=== PATIENT | male | born 1945 | race Caucasian/White ===

== ENCOUNTER 2023-03-30 18:17 | Outpatient (RCR) | payer MEDICARE, SELFPAY | END 2023-03-30 23:59 | disposition home or self-care (01) | LOC: RPT 18:17 | PROVIDERS: ATTENDING PHYSICIAN Specialist; FAMILY PHYSICIAN Physician Assistant | DX: R35.0 Frequency of micturition (principal); M62.89 Other specified disorders of muscle | CPT/HCPCS: 97140; 97530 ==

== ENCOUNTER → 2023-09-05 09:38 | Outpatient (REF) | payer MEDICARE, SELFPAY ==
[2023-09-05 11:25] LABS: PSA, Total - Diagnostic 0.53 ng/ml (0.0-4.0)
== END ==
LOC: REG 09:38
PROVIDERS: ATTENDING PHYSICIAN Specialist
DX: C61 Malignant neoplasm of prostate (principal)
CPT/HCPCS: 36415; 84153

== ENCOUNTER 2023-10-08 04:33 | Emergency (ER) | payer MEDICARE, SELFPAY ==
[2023-10-08 04:39] VITALS: BP 155/86
--- NOTE | 2023-10-08 04:46 | ED.GENMED ---
History of Present Illness
General
Chief Complaint: Abdominal Pain
Time Seen by Provider: 10/08/23 04:41
Travel History
Have you had any contact with someone who has COVID-19?: No
Do you have any symptoms of coronavirus? Fever > 100 degrees, chills, cough, shortness of breath, sore throat, loss of taste or smell, muscle aches, or headache?: No
History of Present Illness
History of Present Illness:
HPI: The patient noted an abnormality in the right groin associated with the pain so he came in here for further evaluation. He has not been vomiting but feels slightly nauseated. He admits to alcohol use on a daily basis.
EXAM:
GENERAL: Well appearing in no distress
HEENT: Moist oral mucosa
CARDIOVASCULAR: No murmurs, normal heart rate, regular rhythm, No chest wall tenderness
PULMONARY: No respiratory distress, breath sounds are clear and equal
ABDOMEN: Soft with no peritoneal signs, no tenderness, there is no palpable inguinal hernia, just above the right inguinal region, there is a 1 x 2 cm ovoid area of erythema with a small nodular density just underneath but not clearly consistent
with an abscess, the tissue appears somewhat indurated
NEUROLOGIC: Excellent strength all extremities, no coordination deficits
PSYCHIATRIC: Appropriate mental status, normal insight and judgement
EXTREMITIES: Nontender, no edema, moves all extremities equally
SKIN: As above
TIME OF INITIAL ENCOUNTER: 4:50 AM
NUMBER AND COMPLEXITY OF PROBLEMS ADDRESSED AT THE ENCOUNTER
� Chronic conditions affecting care: CHF, CAD, high blood pressure, hyperlipidemia, diverticular disease, GERD, stomach ulcers, prostate cancer, daily drinker
� Acute Exacerbation and/or Progression of Chronic Illness: This is an acute problem
� Differential Diagnosis includes: Lymphadenitis, cellulitis, inguinal hernia not present on physical examination
AMOUNT AND/OR COMPLEXITY OF DATA TO BE REVIEWED AND ANALYZED
� I performed an independent evaluation of and my interpretation is:
EKG:
CT:
X-rays:
Laboratory Studies:
Other:
� Review of other/old records: The patient was admitted here in 2022 with an exacerbation of heart failure
� Clinical information was obtained by an independent historian: None needed
� Prescriptions/Medications Considered but not given:
� Further testing considered but not performed: Considered CT imaging and labs however the abnormality on exam is very superficial and could be related to a very superficial infection or infected lymph node/cellulitis
RISK OF COMPLICATIONS AND/OR MORBIDITY OR MORTALITY OF PATIENT MANAGEMENT
� Social determinants of health affecting care: Lives at home, states he drinks alcohol daily
� Discussion with other providers:
� Escalation of care including admission/observation vs risk of discharge considered: Will try antibiotics. No evidence for bowel obstruction based on physical examination. He has a soft nontender abdomen but is only focally
tender over the area of erythema in the right inguinal region.
Past History
Past History
ED Past Medical History: CAD, Cancer (Prostate), GERD, HTN, Hypercholesterolemia, [place], Psychiatric and Other (angioedema)
ED Past Surgical History: Cardiac
Patient has exhibited threatening behavior?: No
Social History
Tobacco: Former smoker
Alcohol: Daily (2 glasses of wine per day)
Drug: None
Living: alone
Employment: Employed
Family History
Family History: CAD
Phy Exam
Physical Exam
Physical Exam:
See HPI
Course
Orders/Labs/Results
Orders:
Orders
10/08/23 04:52
Cephalexin Monohydrate [Keflex] 500 mg PO NOW STA
Vital Signs
Initial and Last Documented VS:
Initial Vital Signs
Temp Pulse Resp Pulse Ox
98.2 F 70 16 95
10/08/23 04:35 10/08/23 04:35 10/08/23 04:35 10/08/23 04:35
Last Documented Vital Signs
Temp Pulse Resp BP Pulse Ox
98.2 F 58 16 119/60 94
10/08/23 04:35 10/08/23 05:11 10/08/23 05:11 10/08/23 05:11 10/08/23 05:11
*Critical Care Note
Total Time (30-74mins, 75-104mins- exclusive of procedures): Not Applicable
ED Attending Note
-
Portions of this chart may have been created with voice recognition software.� Occasional wrong word or��sound alike� substitutions may have occurred due to the inherent limitations of voice recognition software.
Discharge Plan
Departure
Patient Disposition: Home (Routine Discharge)
Date of Disposition: 10/08/23
Time of Disposition: 05:19
Patient with high blood pressure during this ER visit?: Yes
Discharge Problem:
Lymphadenitis
Instructions: Lymphadenitis (DC), BLOOD PRESSURE
Prescriptions:
New
cephalexin 500 mg capsule
500 mg PO TID Qty: 21 0RF
No Action
terazosin 5 MG capsule
5 mg PO HS
aspirin 81 MG tablet,delayed release (DR/EC)
81 mg PO DAILY
rosuvastatin [Crestor] 40 MG tablet
40 mg PO HS
bupropion HCl 300 MG tablet extended release 24 hr
300 mg PO DAILY
ropinirole 1 MG tablet
3 mg PO HS
pantoprazole 40 MG tablet,delayed release (DR/EC)
40 mg PO DAILY
alprazolam 0.25 MG tablet
0.25 mg PO Q8HPRN PRN (Reason: anxiety)
Patient Comments:
04/14/2023, patient filled this medication on 11/27/2022 for 30 tablets according to PDMP.
carvedilol 6.25 mg Tablet
6.25 mg PO BID
guaifenesin [Tussin] 100 mg/5 mL Liquid
200 mg PO BID PRN (Reason: cough)
azelastine 137 mcg (0.1 %) Aerosol,[place]
1 spray INTRANASAL BID
Patient Comments:
04/14/2023, patient states that sometimes they take this medication more than two times a day.
psyllium husk 3.4 gram/5.4 gram Powder
2 tsp PO TIDPRN PRN (Reason: constipation)
furosemide [Lasix] 20 MG tablet
40 mg PO DAILY
tramadol 50 mg Tablet
50 mg PO Q6HPRN PRN (Reason: mod sev pain) Qty: 15 0RF
spironolactone 25 mg Tablet
25 mg PO DAILY Qty: 30 2RF
Jardiance 10 mg Tablet
10 mg PO DAILY Qty: 30 2RF
Referrals:
Karly Simmons MD [Family Provider] -
Activity Restrictions/Additional Instructions:
I suspect that what you are feeling is an infection of the lymph node or just a small area of infection of tissue underneath the skin. We can try an antibiotic for the next week. Return here if worse.
Interventions
Interventions:
*Risk Screen - Suicide Last Done: 10/08/23 04:35
*General Assessment Last Done: 10/08/23 04:35
*Neglect/Abuse Screening Last Done: 10/08/23 04:35
*ED COVID-19 Vaccine History Last Done: 10/08/23 04:46
NE-Mldrfd-Rcpxykyoly Assessment Last Done: 10/08/23 05:11
Discharge Date and Time
Print Language: SALVADOREAN
[2023-10-08] MEDS: KEFLEX 500 MG PO (05:07)
[2023-10-08 05:11] VITALS: BP 119/60
== END 2023-10-08 05:35 | disposition home or self-care (01) ==
LOC: EMR 04:33
PROVIDERS: EMERGENCY PHYSICIAN Emergency Medicine; FAMILY PHYSICIAN Family Medicine
DX: I88.9 Nonspecific lymphadenitis, unspecified (principal); I25.10 Atherosclerotic heart disease of native coronary artery without angina pectoris; K21.9 Gastro-esophageal reflux disease without esophagitis; I11.0 Hypertensive heart disease with heart failure; Z87.891 Personal history of nicotine dependence; Z82.49 Family history of ischemic heart disease and other diseases of the circulatory system; E78.00 Pure hypercholesterolemia, unspecified
CPT/HCPCS: 99282

== ENCOUNTER 2023-10-13 20:05 | Emergency (ER) | payer MEDICARE, SELFPAY ==
[2023-10-13 20:14] VITALS: BP 147/77
[2023-10-13 20:44] LABS: Urine Albumin Negative (Neg - Trace); Urine Bilirubin Negative (Negative); Urine Character Clear (Clear); Urine Color Yellow; Urine Glucose 3+ (Negative); Urine Ketone 1+ (Negative); Urine Leukocyte Negative (Negative); Urine Nitrite Negative (Negative); Urine Occult Blood Negative (Negative); Urine Specific Gravity 1.015 (<1.030); Urine Urobilinogen Negative (Neg - 1+)
[2023-10-13 20:44] LABS: % Basophils 0.4 % (0-2); % Eosinophils 0.6 % (0-6); % Immature Granulocytes 0.2 % (0-0.5); % Monocytes 18.1 % (1.7-9.3); % Neutrophils 40.7 % (42.2-75.2); Absolute Eosinophils 0.1 10^3/uL (0-0.7); Absolute Lymphocytes 3.2 10^3/uL (1.2-3.4); Absolute Monocytes 1.5 10^3/uL (0.1-0.6); Absolute Neutrophils 3.3 10^3/uL (1.4-6.5); Hematocrit 46.1 % (39.0-52.0); Hemoglobin 15.6 g/dL (13.0-18.0); Mean Corp Hgb Conc. 33.8 g/dL (33.0-37.0); Mean Corpuscular Volume 94.5 fL (80.0-94.0); Mean Platelet Volume 10.2 fL (7.4-10.4); Nucleated Red Blood Cells % 0 % (-); Platelet Count 147 10^3/uL (130-400); Red Blood Cell Count 4.88 10^6/uL (4.70-6.10); Red Cell Dist. Width 13.8 % (11.5-14.5); White Blood Cell Count 8.1 10^3/uL (4.8-10.8)
[2023-10-13 20:55] LABS: ALT (SGPT) 37 U/L (0-50); AST (SGOT) 35 U/L (17-59); Albumin 5.2 g/dl (3.5-5.0); Alkaline Phosphatase 49 U/L (38-126); Blood Urea Nitrogen 19 mg/dl (9-20); Calcium 9.8 mg/dl (8.4-10.2); Carbon Dioxide 23 mmol/L (22-30); Glucose 112 mg/dl (70-99); Lipase 125 U/L (23-300); Total Bilirubin 1.3 mg/dl (0.2-1.3); eGFR > 60.00
[2023-10-13 21:00] VITALS: BMI 31.5
[2023-10-13 21:09] LABS: Chloride 101 mmol/L (98-107); Potassium 4.5 mmol/L (3.5-5.1); Sodium 137 mmol/L (135-145)
--- NOTE | 2023-10-13 22:24 | ED.GENMED ---
History of Present Illness
General
Chief Complaint: Abdominal Pain
Source: patient
Exam Limitations: none
Time Seen by Provider: 10/13/23 21:22
Nursing documentation reviewed up to this point in time: agreed with
History of Present Illness
History of Present Illness:
Patient presents to ED secondary to persistent right lower abdominal pain over the past 1 week. Patient was evaluated in ED 5 days ago and was started on antibiotics, without improvement symptoms. At that time, patient was advised to return to ED
with persistent or worsening pain for potential imaging studies. Denies fever or chills. Abdominal pain described as crampy, nonradiating, without any alleviating or exacerbating factors. Denies vomiting or diarrhea. Denies loss of appetite.
Denies recent injuries. Denies difficulty with urination.
Past History
Past History
ED Past Medical History: CAD, Cancer (Prostate), GERD, HTN, Hypercholesterolemia, [place], Psychiatric and Other (angioedema)
ED Past Surgical History: Cardiac
Patient has exhibited threatening behavior?: No
Social History
Tobacco: Former smoker
Alcohol: Daily (2 glasses of wine per day)
Drug: None
Living: alone
Employment: Employed
Family History
Family History: CAD
Review of Systems
Review of Systems
Allergies reviewed?: Yes
All Other Systems: ROS reviewed and negative except as documented in HPI and ROS
Constitutional: Reports no symptoms
ABD/GI: Reports abdominal pain; Denies nausea, vomiting or diarrhea
Musculoskeletal: Reports no symptoms
Skin: Reports no symptoms
Neurological: Reports no symptoms
Phy Exam
Physical Exam
Physical Exam:
Physical Exam
General: no apparent distress, not acutely ill. afebrile
Head: nc/at. eomi
Neck: supple. no meningeal signs.
Abdomen: normal bowel sounds. mild RLQ tenderness to palpation
Neuro: alert and oriented. no focal neurological deficits
Skin: no rash
Psychiatric: well kept. interactive and cooperative
Extremities: no edema. no calf tenderness
Course
Orders/Labs/Results
Orders:
Orders
10/13/23 20:21
Complete Blood Count/With Diff Urgent
Comprehensive Metabolic Panel Urgent
Lipase Urgent
10/13/23 20:39
Urinalysis Reflex To Culture Urgent
Date Specimen was Collected: 10/13/23
Time Specimen was Collected: 20:16
10/13/23 21:34
CT Abd/pel Without Iv Or Oral Urgent
Comment:
Reason For Exam: RLQ pain
Abnormal Lab Results
10/13/23 10/13/23
20:21 20:39
MCV 94.5 H fL
(80.0-94.0)
MCH 32.0 H pg
(27.0-31.0)
Absolute Monos (auto) 1.5 H 10^3/uL
(0.1-0.6)
Neutrophils % 40.7 L %
(42.2-75.2)
Monocytes % 18.1 H %
(1.7-9.3)
Glucose 112 H mg/dl
(70-99)
Albumin 5.2 H g/dl
(3.5-5.0)
Urine Ketones 1+ A
(Negative)
Urine Glucose 3+ A
(Negative)
10/13/23 20:21
10/13/23 20:21
Vital Signs
Initial and Last Documented VS:
Initial Vital Signs
Temp Pulse Resp BP Pulse Ox
98.7 F 75 17 147/77 94
10/13/23 20:14 10/13/23 20:14 10/13/23 20:14 10/13/23 20:14 10/13/23 20:14
Last Documented Vital Signs
Temp Pulse Resp BP Pulse Ox
98.7 F 75 17 147/77 94
10/13/23 20:14 10/13/23 20:14 10/13/23 20:14 10/13/23 20:14 10/13/23 20:14
MDM/Problems Addressed
MDM/Problems Addressed:
Patient with an unremarkable workup in ED, including blood work and CT scan. Patient with nonspecific abdominal pain, without significant distress. Patient will be advised to continue already prescribed antibiotics and follow-up with PCP as an
outpatient.
*Critical Care Note
Total Time (30-74mins, 75-104mins- exclusive of procedures): Not Applicable
ED Attending Note
-
Portions of this chart may have been created with voice recognition software.� Occasional wrong word or��sound alike� substitutions may have occurred due to the inherent limitations of voice recognition software.
Discharge Plan
Departure
Patient Disposition: Home (Routine Discharge)
Date of Disposition: 10/13/23
Time of Disposition: 23:15
Patient with high blood pressure during this ER visit?: Yes
Discharge Problem:
Abdominal pain
Instructions: Abdominal Pain
Prescriptions:
No Action
terazosin 5 MG capsule
5 mg PO HS
aspirin 81 MG tablet,delayed release (DR/EC)
81 mg PO DAILY
rosuvastatin [Crestor] 40 MG tablet
40 mg PO HS
bupropion HCl 300 MG tablet extended release 24 hr
300 mg PO DAILY
ropinirole 1 MG tablet
3 mg PO HS
pantoprazole 40 MG tablet,delayed release (DR/EC)
40 mg PO DAILY
alprazolam 0.25 MG tablet
0.25 mg PO Q8HPRN PRN (Reason: anxiety)
Patient Comments:
04/14/2023, patient filled this medication on 11/27/2022 for 30 tablets according to PDMP.
carvedilol 6.25 mg Tablet
6.25 mg PO BID
guaifenesin [Tussin] 100 mg/5 mL Liquid
200 mg PO BID PRN (Reason: cough)
azelastine 137 mcg (0.1 %) Aerosol,[place]
1 spray INTRANASAL BID
Patient Comments:
04/14/2023, patient states that sometimes they take this medication more than two times a day.
psyllium husk 3.4 gram/5.4 gram Powder
2 tsp PO TIDPRN PRN (Reason: constipation)
furosemide [Lasix] 20 MG tablet
40 mg PO DAILY
tramadol 50 mg Tablet
50 mg PO Q6HPRN PRN (Reason: mod sev pain) Qty: 15 0RF
spironolactone 25 mg Tablet
25 mg PO DAILY Qty: 30 2RF
Jardiance 10 mg Tablet
10 mg PO DAILY Qty: 30 2RF
cephalexin 500 mg capsule
500 mg PO TID Qty: 21 0RF
Referrals:
Jersey Rios MD [Active] -
Karly Simmons MD [Family Provider] -
Activity Restrictions/Additional Instructions:
As discussed, please follow-up with your primary care physician and/or referred GI physician with any further concerns. In the meantime, please continue to take already prescribed antibiotics.
Interventions
Interventions:
*Risk Screen - Suicide Last Done: 10/13/23 20:14
*General Assessment Last Done: 10/13/23 20:14
*Neglect/Abuse Screening Last Done: 10/13/23 20:14
ED- Fall Risk Assessment Last Done: 10/13/23 21:01
*ED COVID-19 Vaccine History Last Done: 10/13/23 23:31
*Nursing Disposition Last Done: 10/13/23 23:31
LM-Thfctz-Vkujqgebly Assessment Last Done: 10/13/23 21:01
Discharge Date and Time
Discharge Date/Time: 10/13/23 23:32
Print Language: BELARUSIAN
== END 2023-10-13 23:32 | disposition home or self-care (01) ==
LOC: EMR 20:05
PROVIDERS: Emergency Medicine; EMERGENCY PHYSICIAN Emergency Medicine; FAMILY PHYSICIAN Family Medicine
DX: R10.31 Right lower quadrant pain (principal); I10 Essential (primary) hypertension; I25.10 Atherosclerotic heart disease of native coronary artery without angina pectoris; E78.00 Pure hypercholesterolemia, unspecified; K21.9 Gastro-esophageal reflux disease without esophagitis; I25.2 Old myocardial infarction; Z85.46 Personal history of malignant neoplasm of prostate; Z87.891 Personal history of nicotine dependence; Z88.8 Allergy status to other drugs, medicaments and biological substances; Z91.048 Other nonmedicinal substance allergy status; Z79.82 Long term (current) use of aspirin
CPT/HCPCS: 99284; 74176; 80053; 81003; 83690; 85025

== ENCOUNTER 2023-10-22 22:25 | Emergency (ER) | payer MEDICARE, SELFPAY ==
[2023-10-22 22:27] VITALS: BP 136/74; BMI 31.7
--- NOTE | 2023-10-23 00:29 | ED.GENMED ---
History of Present Illness
General
Chief Complaint: Skin Problem
Source: patient and previous hospital records
Exam Limitations: none
Time Seen by Provider: 10/23/23 00:22
Nursing documentation reviewed up to this point in time: agreed with
History of Present Illness
History of Present Illness:
This is a 78-year-old gentleman who presents to the ED tonight with complaints of a red slightly itchy rash right inguinal/right lower quadrant that he noticed after getting out of the shower tonight. He denies pain. He does admit to mild local
itch. He denies fever nor chills.
Recent ED visits October 07 as well as October 12 with complaints of right groin painful nodule initially thought to be a focal lymphadenitis on the , started on a course of Keflex then returned October 12 with complaints of ongoing right lower quadrant
pain, unremarkable ED visit including unremarkable laboratories and unremarkable CT abdomen pelvis showing no adenopathy, no masses, no acute intra-abdominal pathology.
Since then right lower quadrant, right inguinal pain have resolved without return.
Past History
Past History
ED Past Medical History: CAD, Cancer (Prostate), GERD, HTN, Hypercholesterolemia, [place], Psychiatric and Other (angioedema)
ED Past Surgical History: Cardiac
Patient has exhibited threatening behavior?: No
Social History
Tobacco: Former smoker
Alcohol: Daily (2 glasses of wine per day)
Drug: None
Living: alone
Employment: Employed
Family History
Family History: CAD
Phy Exam
Physical Exam
Physical Exam:
GENERAL: 78-year-old gentleman appears his stated age, bright and alert, pleasant, appears in no acute distress.
NECK: Supple, nontender, no meningismus, no significant adenopathy.
ENT: oral mucosa is moist. No rhinorrhea.
CARDIAC: Regular rate and rhythm. no murmur.
LUNGS: Clear breath sounds bilaterally, no acute respiratory distress, no wheezes/rales/rhonchi
ABDOMEN: Soft, nondistended, without focal tenderness, no r/g, no cvat. normoactive BS.
NEUROLOGICAL: Alert and oriented x3, no focal neuro deficits. Gait is gutiérrez and steady.
SKIN: Warm and dry, normal color, good turgor. Right inferior lower quadrant/right superior inguinal region is a small horizontal red papular patch with few satellite lesions consistent with fungal dermatitis. This area fungal dermatitis is at the
crease of his abdominal pannus. There is no drainage, no surrounding erythema, no palpable tenderness.
MUSCULOSKELETAL: No C/C/E. peripheral pulses are full and equal b/l. No palpable tenderness.
PSYCH: Normal and appropriate interaction.
Course
Orders/Labs/Results
Orders:
Orders
10/23/23 00:28
Clotrimazole/Betamet Diprop [Lotrisone Cream] 1 applic TOPICAL NOW STA
Vital Signs
Initial and Last Documented VS:
Initial Vital Signs
Temp Pulse Resp BP
98.3 F 88 16 136/74
10/22/23 22:27 10/22/23 22:27 10/22/23 22:27 10/22/23 22:27
Last Documented Vital Signs
Temp Pulse Resp BP
98.3 F 88 16 136/74
10/22/23 22:27 10/22/23 22:27 10/22/23 22:27 10/22/23 22:27
MDM/Problems Addressed
Differential Diagnosis Includes:
Patient presents with mildly itchy rash right lower quadrant beneath his abdominal pannus which he just noticed tonight after taking a shower.
Exam remarkable for focal fungal skin infection such as tinea versus candidal dermatitis.
There is no surrounding cellulitis, nothing to signify secondary bacterial infection.
No history of diabetes nor immunocompromise.
Recommend a course of Lotrisone cream. Discussed importance of keeping area dry.
Prompt follow-up with PCP for recheck.
*Pulse Oximetry
Patient hypoxic: no
*Critical Care Note
Total Time (30-74mins, 75-104mins- exclusive of procedures): Not Applicable
ED Attending Note
-
Portions of this chart may have been created with voice recognition software.� Occasional wrong word or��sound alike� substitutions may have occurred due to the inherent limitations of voice recognition software.
Discharge Plan
Departure
Patient Disposition: Home (Routine Discharge)
Date of Disposition: 10/23/23
Time of Disposition: 00:29
Patient with high blood pressure during this ER visit?: No
Condition: Good
Discharge Problem:
Candidal dermatitis
Instructions: Fungal Skin Rash (DC)
Prescriptions:
New
clotrimazole-betamethasone 1-0.05 % cream
1 applic topical BID 28 Days Qty: 45 0RF
No Action
terazosin 5 MG capsule
5 mg PO HS
aspirin 81 MG tablet,delayed release (DR/EC)
81 mg PO DAILY
rosuvastatin [Crestor] 40 MG tablet
40 mg PO HS
bupropion HCl 300 MG tablet extended release 24 hr
300 mg PO DAILY
ropinirole 1 MG tablet
3 mg PO HS
pantoprazole 40 MG tablet,delayed release (DR/EC)
40 mg PO DAILY
alprazolam 0.25 MG tablet
0.25 mg PO Q8HPRN PRN (Reason: anxiety)
Patient Comments:
04/14/2023, patient filled this medication on 11/27/2022 for 30 tablets according to PDMP.
carvedilol 6.25 mg Tablet
6.25 mg PO BID
guaifenesin [Tussin] 100 mg/5 mL Liquid
200 mg PO BID PRN (Reason: cough)
azelastine 137 mcg (0.1 %) Aerosol,[place]
1 spray INTRANASAL BID
Patient Comments:
04/14/2023, patient states that sometimes they take this medication more than two times a day.
psyllium husk 3.4 gram/5.4 gram Powder
2 tsp PO TIDPRN PRN (Reason: constipation)
furosemide [Lasix] 20 MG tablet
40 mg PO DAILY
tramadol 50 mg Tablet
50 mg PO Q6HPRN PRN (Reason: mod sev pain) Qty: 15 0RF
spironolactone 25 mg Tablet
25 mg PO DAILY Qty: 30 2RF
Jardiance 10 mg Tablet
10 mg PO DAILY Qty: 30 2RF
cephalexin 500 mg capsule
500 mg PO TID Qty: 21 0RF
Referrals:
Karly Simmons MD [Family Provider] - Call in 1-3 days for appt
Interventions
Interventions:
*Risk Screen - Suicide Last Done: 10/22/23 22:27
*Neglect/Abuse Screening Last Done: 10/22/23 22:27
Discharge Date and Time
Print Language: EGYPTIAN
== END 2023-10-23 01:19 | disposition home or self-care (01) ==
LOC: EMR 22:25
PROVIDERS: EMERGENCY PHYSICIAN Emergency Medicine; FAMILY PHYSICIAN Family Medicine
DX: B37.2 Candidiasis of skin and nail (principal); I25.10 Atherosclerotic heart disease of native coronary artery without angina pectoris; K21.9 Gastro-esophageal reflux disease without esophagitis; I10 Essential (primary) hypertension; E78.00 Pure hypercholesterolemia, unspecified; I25.2 Old myocardial infarction; Z82.49 Family history of ischemic heart disease and other diseases of the circulatory system; Z87.891 Personal history of nicotine dependence
CPT/HCPCS: 99282

== ENCOUNTER 2023-11-03 12:17 | Emergency (ER) | payer MEDICARE, SELFPAY ==
[2023-11-03 12:20] VITALS: BP 157/88; BMI 31.0
--- NOTE | 2023-11-03 12:53 | ED.GENMED ---
History of Present Illness
General
Chief Complaint: Dizziness
Source: patient
Exam Limitations: none
Time Seen by Provider: 11/03/23 12:36
Nursing documentation reviewed up to this point in time: agreed with
History of Present Illness
History of Present Illness:
78-year-old male presents emergency room complaining of episode of dizziness. He felt the room shifting. [place] similar to his vertigo. He also felt flush. Symptoms lasted 5 to 10 seconds. This occurred at 11:30 AM.
Past History
Past History
ED Past Medical History: CAD, Cancer (Prostate), CHF, GERD, HTN, Hypercholesterolemia, [place], Psychiatric and Other (angioedema, diverticulitis)
ED Past Surgical History: Cardiac
Patient has exhibited threatening behavior?: No
Social History
Tobacco: Former smoker
Alcohol: Daily (2 glasses of wine per day)
Drug: None
Living: alone
Employment: Employed
Family History
Family History: CAD
Review of Systems
Review of Systems
Allergies reviewed?: Yes
All Other Systems: Not applicable
Constitutional: Reports no symptoms
EENT: Reports no symptoms
Respiratory: Reports no symptoms
Cardiac: Reports no symptoms; Denies chest pain or syncope
ABD/GI: Reports no symptoms
: Reports no symptoms
Musculoskeletal: Reports no symptoms
Skin: Reports no symptoms
Neurological: Reports dizzy
Endocrine: Reports no symptoms
Hematologic/Lymphatic: Reports no symptoms
Psychiatric: Reports no symptoms
Phy Exam
Physical Exam
Physical Exam:
Physical Exam
General: no apparent distress, not acutely ill
Neck: supple. no meningeal signs. normal posterior pharynx
Heart: s1/s2 regular rate and rhythm, no murmur. equal radial
pulses. Midline sternotomy scar
HEENT: Pupils equal round reactive to light, EOMI
Lungs: no acute respiratory distress. clear bilaterally
Abdomen: normal bowel sounds. not tender. no CVAT
Neuro: alert and oriented. no focal neurological deficits cranial nerves II through XII intact
Skin: no rash
Psychiatric: well kept. interactive and cooperative
Extremities: no edema. no calf tenderness. negative homans. good distal pulses
Course
Orders/Labs/Results
Orders:
Orders
11/03/23 12:25
EKG [Electrocardiogram (*1)] Stat
Reason for Study: Vertigo / Dizzy
EKG- Treatment ONCE
11/03/23 12:56
IV Insert/Care/Rem.- Treatment PRN
11/03/23 13:04
Complete Blood Count/With Diff Urgent
Comprehensive Metabolic Panel Urgent
Manual Differential Urgent
11/03/23 15:23
CT Head W/o Iv Contrast Urgent
Comment:
Reason For Exam: dizziness
Abnormal Lab Results
11/03/23
13:04
RBC 4.64 L 10^6/uL
(4.70-6.10)
MCH 32.3 H pg
(27.0-31.0)
Monocytes (Manual) 20 H %
(2-9)
Glucose 110 H mg/dl
(70-99)
11/03/23 13:04
11/03/23 13:04
Vital Signs
Initial and Last Documented VS:
Initial Vital Signs
Temp Pulse Resp BP Pulse Ox
98.7 F 53 16 157/88 96
11/03/23 12:20 11/03/23 12:20 11/03/23 12:20 11/03/23 12:20 11/03/23 12:20
Last Documented Vital Signs
Temp Pulse Resp BP Pulse Ox
98.7 F 59 20 142/85 97
11/03/23 12:20 11/03/23 15:00 11/03/23 15:00 11/03/23 15:00 11/03/23 15:00
MDM/Problems Addressed
Differential Diagnosis Includes:
CVA, dysrhythmia
MDM/Problems Addressed:
78 yo male with episode of dizziness. Do not suspect dysrhythmia or CVA. Asymptomatic. Stable for discharge.
Chronic conditions affecting care: HTN and CAD
Acute Exacerbation and/or Progression of Chronic Illness: HTN and CAD
*Radiology
Radiology exam reviewed: radiology read reviewed (CT head no acute findings)
*Pulse Oximetry
Patient hypoxic: no
*EKG
Interpreted by ED Provider?: Yes
EKG Intrepretation Date: 11/03/23
EKG Intrepretation Time: 12:59
Interpretation: abnormal
Comparison EKG: no changes
Heart Rate: 54
Rate: bradycardiac
Rhythm: sinus
[place]: normal axis
Interval: normal interval
QRS Pattern: left vent hypertrophy
Ischemia: no ischemia
*Electrophonic Engineer Interpretation
Rate: bradycardiac
Interpretation: normal
Heart Rate: 58
Rhythm: sinus
*Critical Care Note
Total Time (30-74mins, 75-104mins- exclusive of procedures): Not Applicable
Patient Management
Social determinants of health affecting care: Living situation
Escalation/DeEscalation of care consider admission/obs:
Admit not indicated
ED Attending Note
-
Portions of this chart may have been created with voice recognition software.� Occasional wrong word or��sound alike� substitutions may have occurred due to the inherent limitations of voice recognition software.
Discharge Plan
Departure
Patient Disposition: Home (Routine Discharge)
Date of Disposition: 11/03/23
Time of Disposition: 17:23
Patient with high blood pressure during this ER visit?: Yes
Condition: Good
Discharge Problem:
Dizziness
Instructions: Dizziness, BLOOD PRESSURE
Prescriptions:
No Action
terazosin 5 MG capsule
5 mg PO HS
aspirin 81 MG tablet,delayed release (DR/EC)
81 mg PO DAILY
rosuvastatin [Crestor] 40 MG tablet
40 mg PO HS
bupropion HCl 300 MG tablet extended release 24 hr
300 mg PO DAILY
ropinirole 1 MG tablet
3 mg PO HS
pantoprazole 40 MG tablet,delayed release (DR/EC)
40 mg PO DAILY
alprazolam 0.25 MG tablet
0.25 mg PO Q8HPRN PRN (Reason: anxiety)
Patient Comments:
04/14/2023, patient filled this medication on 11/27/2022 for 30 tablets according to PDMP.
carvedilol 6.25 mg Tablet
6.25 mg PO BID
guaifenesin [Tussin] 100 mg/5 mL Liquid
200 mg PO BID PRN (Reason: cough)
azelastine 137 mcg (0.1 %) Aerosol,[place]
1 spray INTRANASAL BID
Patient Comments:
04/14/2023, patient states that sometimes they take this medication more than two times a day.
psyllium husk 3.4 gram/5.4 gram Powder
2 tsp PO TIDPRN PRN (Reason: constipation)
furosemide [Lasix] 20 MG tablet
40 mg PO DAILY
tramadol 50 mg Tablet
50 mg PO Q6HPRN PRN (Reason: mod sev pain) Qty: 15 0RF
spironolactone 25 mg Tablet
25 mg PO DAILY Qty: 30 2RF
Jardiance 10 mg Tablet
10 mg PO DAILY Qty: 30 2RF
cephalexin 500 mg capsule
500 mg PO TID Qty: 21 0RF
clotrimazole-betamethasone 1-0.05 % cream
1 applic topical BID 28 Days Qty: 45 0RF
Referrals:
Karyl Simmons MD [Family Provider] -
Interventions
Interventions:
*Risk Screen - Suicide Last Done: 11/03/23 12:20
*General Assessment Last Done: 11/03/23 14:00
*Neglect/Abuse Screening Last Done: 11/03/23 12:20
ED- Neurological Assessment Last Done: 11/03/23 14:00
ED Swallowing Screen Last Done: 11/03/23 12:35
Discharge Date and Time
Print Language: PORTUGUESE
[2023-11-03 13:18] LABS: Hematocrit 42.6 % (39.0-52.0); Mean Corp Hgb Conc. 35.2 g/dL (33.0-37.0); Mean Corpuscular Hgb 32.3 pg (27.0-31.0); Mean Corpuscular Volume 91.8 fL (80.0-94.0); Mean Platelet Volume 10.1 fL (7.4-10.4); Nucleated Red Blood Cells % 0 % (-); Platelet Count 148 10^3/uL (130-400); Red Blood Cell Count 4.64 10^6/uL (4.70-6.10); Red Cell Dist. Width 13.4 % (11.5-14.5); White Blood Cell Count 6.9 10^3/uL (4.8-10.8)
[2023-11-03 13:44] LABS: ALT (SGPT) 32 U/L (0-50); AST (SGOT) 32 U/L (17-59); Albumin 4.8 g/dl (3.5-5.0); Alkaline Phosphatase 49 U/L (38-126); Blood Urea Nitrogen 19 mg/dl (9-20); Calcium 9.5 mg/dl (8.4-10.2); Carbon Dioxide 27 mmol/L (22-30); Chloride 101 mmol/L (98-107); Estimated Creatinine Clearance 79 ml/min; Glucose 110 mg/dl (70-99); Potassium 4.3 mmol/L (3.5-5.1); Sodium 137 mmol/L (135-145); Total Bilirubin 1.1 mg/dl (0.2-1.3); Total Protein 7.1 g/dl (6.3-8.2); eGFR > 60.00
[2023-11-03 14:25] LABS: Absolute Neutrophils -Man Diff 3.1 10^3/uL (1.4-6.5); Band Neutrophils 0 % (0-3); Eosinophils 1 % (0-6); Lymphocytes 34 % (20-51); Monocytes 20 % (2-9); Normal RBC Morphology Yes; Platelets Checked Yes; Segmented Neutrophils 45 % (42-75); Total Cells Counted 100
[2023-11-03 15:00] VITALS: BP 142/85
[2023-11-03 17:00] VITALS: BP 142/68
== END 2023-11-03 17:43 | disposition home or self-care (01) ==
LOC: EMR 12:17
PROVIDERS: EMERGENCY PHYSICIAN Emergency Medicine; FAMILY PHYSICIAN Family Medicine
DX: R42 Dizziness and giddiness (principal); I25.10 Atherosclerotic heart disease of native coronary artery without angina pectoris; E78.00 Pure hypercholesterolemia, unspecified; I11.0 Hypertensive heart disease with heart failure; I50.9 Heart failure, unspecified; K21.9 Gastro-esophageal reflux disease without esophagitis; Z82.49 Family history of ischemic heart disease and other diseases of the circulatory system; Z87.891 Personal history of nicotine dependence
CPT/HCPCS: 99284; 70450; 80053; 85025; 93005

== ENCOUNTER 2023-11-18 22:45 | Emergency (ER) | payer MEDICARE, SELFPAY ==
[2023-11-18 22:53] VITALS: BP 114/62
[2023-11-19 00:15] VITALS: BMI 34.0
--- NOTE | 2023-11-19 02:33 | ED.MUSCINJ ---
HPI-Injury
General
Chief Complaint: Musculo-Skeletal Complaint
Source: patient
Time Seen by Provider: 11/18/23 23:59
History of Present Illness-Injury
Initial Injury comments:
78yo right hand dominant male with a history of coronary artery disease, CHF, hypertension, and hyperlipidemia presenting for evaluation of right hand and wrist pain. Patient states that a router and a printer fell on his right hand yesterday. He
developed pain and swelling after the incident. He presents with persistent pain. He has taken tramadol without relief. No paresthesias. He has no other complaints.
Past History
Past History
ED Past Medical History: CAD, Cancer (Prostate), CHF, GERD, HTN, Hypercholesterolemia, [place], Psychiatric and Other (angioedema, diverticulitis)
ED Past Surgical History: Cardiac
Patient has exhibited threatening behavior?: No
Social History
Tobacco: Former smoker
Alcohol: Daily (2 glasses of wine per day)
Drug: None
Living: alone
Employment: Employed
Family History
Family History: CAD
Phy Exam
Physical Exam
Physical Exam:
Right hand: Mild swelling to dorsum of hand. No deformity or open wounds. +Generalized tenderness throughout hand which seems to be worse at the ulnar styloid. +Snuffbox tenderness. ROM of wrist mildly decreased 2/2 pain. 2+ radial pulse. Motor and
sensation intact in radial, ulnar, and median nerve distributions.
General Physical Exam
General Presentation: well appearing and no apparent distress
General age: appears stated age
General Skin: warm and dry
General Habitus: normal and elderly
Injury Course
Orders/Labs/Results
Orders:
Orders
11/18/23 22:59
CR Wrist - Right Min 3 Views Urgent
Comment:
Reason For Exam: injury
Hand, Right 3 View [CR Hand - Right Min 3 Views] Urgent
Comment:
Reason For Exam: injury
11/19/23 00:06
Thumb Spica Right-Treatment ONCE
MDM/Problems Addressed
Differential Diagnosis Includes:
78yoM here with R wrist and hand pain after an injury yesterday. No deformity on exam. RUE is neurovascularly intact. Differential diagnosis includes but is not limited to: fracture, sprain, contusion
X-rays of R hand and wrist obtained. No acute fracture per my interpretation. Patient was initially placed in a thumb spica splint by nursing staff given snuffbox tenderness on exam. Patient is requesting to have this removed because he states his
pain is mostly at the ulnar aspect of the hand. [place] wrist brace given to patient. Supportive care discussed. He was advised to f/u with orthopedics.
*Critical Care Note
Total Time (30-74mins, 75-104mins- exclusive of procedures): Not Applicable
ED Attending Note
-
Portions of this chart may have been created with voice recognition software.� Occasional wrong word or��sound alike� substitutions may have occurred due to the inherent limitations of voice recognition software.
Discharge Plan
Departure
Patient Disposition: Home (Routine Discharge)
Date of Disposition: 11/19/23
Time of Disposition: 01:07
Patient with high blood pressure during this ER visit?: No
Discharge Problem:
Injury of right wrist
Instructions: Common Wrist Injuries ED
Prescriptions:
No Action
terazosin 5 MG capsule
5 mg PO HS
aspirin 81 MG tablet,delayed release (DR/EC)
81 mg PO DAILY
rosuvastatin [Crestor] 40 MG tablet
40 mg PO HS
bupropion HCl 300 MG tablet extended release 24 hr
300 mg PO DAILY
ropinirole 1 MG tablet
3 mg PO HS
pantoprazole 40 MG tablet,delayed release (DR/EC)
40 mg PO DAILY
alprazolam 0.25 MG tablet
0.25 mg PO Q8HPRN PRN (Reason: anxiety)
Patient Comments:
04/14/2023, patient filled this medication on 11/27/2022 for 30 tablets according to PDMP.
carvedilol 6.25 mg Tablet
6.25 mg PO BID
guaifenesin [Tussin] 100 mg/5 mL Liquid
200 mg PO BID PRN (Reason: cough)
azelastine 137 mcg (0.1 %) Aerosol,[place]
1 spray INTRANASAL BID
Patient Comments:
04/14/2023, patient states that sometimes they take this medication more than two times a day.
psyllium husk 3.4 gram/5.4 gram Powder
2 tsp PO TIDPRN PRN (Reason: constipation)
furosemide [Lasix] 20 MG tablet
40 mg PO DAILY
tramadol 50 mg Tablet
50 mg PO Q6HPRN PRN (Reason: mod sev pain) Qty: 15 0RF
spironolactone 25 mg Tablet
25 mg PO DAILY Qty: 30 2RF
Jardiance 10 mg Tablet
10 mg PO DAILY Qty: 30 2RF
cephalexin 500 mg capsule
500 mg PO TID Qty: 21 0RF
clotrimazole-betamethasone 1-0.05 % cream
1 applic topical BID 28 Days Qty: 45 0RF
Referrals:
Donal Andino MD [Active] -
Phillip Damian MD [Family Provider] -
Activity Restrictions/Additional Instructions:
Apply ice to affected area. Take Tylenol as needed for pain. Wear brace for comfort.
Please call orthopedics on Tuesday for follow-up.
Interventions
Interventions:
*Risk Screen - Suicide Last Done: 11/18/23 22:53
*General Assessment Last Done: 11/18/23 22:53
*Neglect/Abuse Screening Last Done: 11/18/23 22:53
ED- Fall Risk Assessment Last Done: 11/18/23 22:53
*ED COVID-19 Vaccine History Last Done: 11/18/23 22:53
*Nursing Disposition Last Done: 11/19/23 01:31
ED-Musculoskeletal Assessment Last Done: 11/19/23 00:16
Discharge Date and Time
Discharge Date/Time: 11/19/23 01:30
Print Language: TURKMEN
== END 2023-11-19 01:30 | disposition home or self-care (01) ==
LOC: EMR 22:45
PROVIDERS: EMERGENCY PHYSICIAN Emergency Medicine; FAMILY PHYSICIAN Family Medicine
DX: S69.91XA Unspecified injury of right wrist, hand and finger(s), initial encounter (principal); X58.XXXA Exposure to other specified factors, initial encounter; I25.10 Atherosclerotic heart disease of native coronary artery without angina pectoris; I11.0 Hypertensive heart disease with heart failure; I50.9 Heart failure, unspecified; E78.00 Pure hypercholesterolemia, unspecified; K21.9 Gastro-esophageal reflux disease without esophagitis; Z82.49 Family history of ischemic heart disease and other diseases of the circulatory system; Z87.891 Personal history of nicotine dependence
CPT/HCPCS: 99283; 29125; 73110; 73130

== ENCOUNTER 2024-01-08 19:46 | Emergency (ER) | payer MEDICARE, SELFPAY ==
[2024-01-08 19:57] VITALS: BP 130/74
--- NOTE | 2024-01-08 21:29 | ED.GENMED ---
History of Present Illness
General
Chief Complaint: Cough
Source: patient
Exam Limitations: none
Time Seen by Provider: 01/08/24 20:14
Nursing documentation reviewed up to this point in time: agreed with
History of Present Illness
History of Present Illness:
Patient states he had COVID 2 weeks ago. States cough continues. Pl[place] Promethazine by PCP but states this is not helping. Brought self to ED for eval. Denies fever/chills. No SOB, CP/pressure.
Past History
Past History
ED Past Medical History: CAD, Cancer (Prostate), CHF, GERD, HTN, Hypercholesterolemia, [place], Psychiatric and Other (angioedema, diverticulitis)
ED Past Surgical History: Cardiac
Patient has exhibited threatening behavior?: No
Social History
Tobacco: Former smoker
Alcohol: Daily (2 glasses of wine per day)
Drug: None
Living: alone
Employment: Employed
Family History
Family History: CAD
Review of Systems
Review of Systems
Allergies reviewed?: Yes
All Other Systems: ROS reviewed and negative except as documented in HPI and ROS
Constitutional: Reports no symptoms
EENT: Reports no symptoms
Respiratory: Reports cough
Cardiac: Reports no symptoms
ABD/GI: Reports no symptoms
: Reports no symptoms
Musculoskeletal: Reports no symptoms
Skin: Reports no symptoms
Neurological: Reports no symptoms
Psychiatric: Reports no symptoms
Phy Exam
General Physical Exam
General Presentation: well appearing and no apparent distress
General age: appears stated age
General Skin: warm and dry
General Habitus: normal
General Mental: alert
Pulmonary Exam
Pulmonary Exam: lungs clear and no respiratory distress
Musculoskeletal Exam
Musculoskeletal Exam: full ROM
Skin Exam
Skin Exam: normal color, warm/dry and no rash
Psychiatric Exam
Psychiatric Exam: normal mood/affect
Course
Orders/Labs/Results
Orders:
Orders
01/08/24 20:50
CR Chest - 2 Views Urgent
Comment:
Reason For Exam: cough
01/08/24 21:27
Prednisone [Deltasone] 40 mg PO NOW STA
Vital Signs
Initial and Last Documented VS:
Initial Vital Signs
Temp Pulse Resp BP Pulse Ox
98.1 F 74 24 130/74 96
01/08/24 19:57 01/08/24 19:57 01/08/24 19:57 01/08/24 19:57 01/08/24 19:57
Last Documented Vital Signs
Temp Pulse Resp BP Pulse Ox
98.1 F 74 16 130/74 96
01/08/24 19:57 01/08/24 19:57 01/08/24 20:00 01/08/24 19:57 01/08/24 19:57
*Radiology
Radiology exam reviewed: radiology read reviewed
*Pulse Oximetry
Patient hypoxic: no
*Critical Care Note
Total Time (30-74mins, 75-104mins- exclusive of procedures): Not Applicable
ED Attending Note
-
Portions of this chart may have been created with voice recognition software.� Occasional wrong word or��sound alike� substitutions may have occurred due to the inherent limitations of voice recognition software.
Discharge Plan
Departure
Patient Disposition: Home (Routine Discharge)
Date of Disposition: 01/08/24
Time of Disposition: 21:27
Patient with high blood pressure during this ER visit?: No
Condition: Good
Discharge Problem:
Cough in adult
Instructions: Cough, Adult (DC)
Prescriptions:
New
prednisone 10 mg Tablet
See Rx Instructions .ROUTE .COMPLEX Qty: 30 0RF
Rx Instructions:
Take By Mouth:
40 mg daily x3 days, 30 mg daily x3 days,
20 mg daily x3 days, 10 mg daily x3 days.
No Action
terazosin 5 MG capsule
5 mg PO HS
aspirin 81 MG tablet,delayed release (DR/EC)
81 mg PO DAILY
rosuvastatin [Crestor] 40 MG tablet
40 mg PO HS
bupropion HCl 300 MG tablet extended release 24 hr
300 mg PO DAILY
ropinirole 1 MG tablet
3 mg PO HS
pantoprazole 40 MG tablet,delayed release (DR/EC)
40 mg PO DAILY
alprazolam 0.25 MG tablet
0.25 mg PO Q8HPRN PRN (Reason: anxiety)
Patient Comments:
04/14/2023, patient filled this medication on 11/27/2022 for 30 tablets according to PDMP.
carvedilol 6.25 mg Tablet
6.25 mg PO BID
guaifenesin [Tussin] 100 mg/5 mL Liquid
200 mg PO BID PRN (Reason: cough)
azelastine 137 mcg (0.1 %) Aerosol,[place]
1 spray INTRANASAL BID
Patient Comments:
04/14/2023, patient states that sometimes they take this medication more than two times a day.
psyllium husk 3.4 gram/5.4 gram Powder
2 tsp PO TIDPRN PRN (Reason: constipation)
furosemide [Lasix] 20 MG tablet
40 mg PO DAILY
tramadol 50 mg Tablet
50 mg PO Q6HPRN PRN (Reason: mod sev pain) Qty: 15 0RF
spironolactone 25 mg Tablet
25 mg PO DAILY Qty: 30 2RF
Jardiance 10 mg Tablet
10 mg PO DAILY Qty: 30 2RF
cephalexin 500 mg capsule
500 mg PO TID Qty: 21 0RF
clotrimazole-betamethasone 1-0.05 % cream
1 applic topical BID 28 Days Qty: 45 0RF
Referrals:
Simmons,Karly A., MD [Family Provider] - Call in 1-3 days for appt
Interventions
Interventions:
*Risk Screen - Suicide Last Done: 01/08/24 19:57
*General Assessment Last Done: 01/08/24 20:11
*Neglect/Abuse Screening Last Done: 01/08/24 19:57
*ED COVID-19 Vaccine History Last Done: 01/08/24 20:11
ED- Pulmonary Assessment Last Done: 01/08/24 20:11
Discharge Date and Time
Print Language: KAZAKH
[2024-01-08] MEDS: DELTASONE 40 MG PO (21:31)
[2024-01-08 21:36] VITALS: BP 128/80
== END 2024-01-08 21:37 | disposition home or self-care (01) ==
LOC: EMR 19:46
PROVIDERS: EMERGENCY PHYSICIAN Emergency Medicine; FAMILY PHYSICIAN Family Medicine
DX: R05.9 Cough, unspecified (principal); I25.10 Atherosclerotic heart disease of native coronary artery without angina pectoris; I11.0 Hypertensive heart disease with heart failure; I50.9 Heart failure, unspecified; E78.00 Pure hypercholesterolemia, unspecified; K21.9 Gastro-esophageal reflux disease without esophagitis; I25.2 Old myocardial infarction; Z82.49 Family history of ischemic heart disease and other diseases of the circulatory system; Z87.891 Personal history of nicotine dependence
CPT/HCPCS: 99283; 71046

== ENCOUNTER 2024-01-16 10:52 | Inpatient (IN) | payer MEDICARE, SELFPAY ==
[2024-01-16] VITALS (13 sets, daily range): BP systolic 92–135; BP diastolic 51–92; PULSE 66–67; O2SAT 94–95; BMI 31.2; BMI 30.6
[2024-01-16 03:32] LABS: % Basophils 0.3 % (0-2); % Immature Granulocytes 2.1 % (0-0.5); % Lymphocytes 6.1 % (20.5-51.1); % Monocytes 12.8 % (1.7-9.3); % Neutrophils 78.7 % (42.2-75.2); Absolute Immature Granulocytes 0.2 10^3/uL (0-0.05); Absolute Lymphocytes 0.5 10^3/uL (1.2-3.4); Hematocrit 43.8 % (39.0-52.0); Hemoglobin 15.5 g/dL (13.0-18.0); Mean Corp Hgb Conc. 35.4 g/dL (33.0-37.0); Mean Corpuscular Volume 90.3 fL (80.0-94.0); Mean Platelet Volume 10.3 fL (7.4-10.4); Nucleated Red Blood Cells % 0 % (-); Platelet Count 147 10^3/uL (130-400); Red Blood Cell Count 4.85 10^6/uL (4.70-6.10); Red Cell Dist. Width 14.7 % (11.5-14.5); White Blood Cell Count 7.6 10^3/uL (4.8-10.8)
[2024-01-16 03:40] LABS: ALT (SGPT) 41 U/L (0-50); AST (SGOT) 34 U/L (17-59); Albumin 4.5 g/dl (3.5-5.0); Alkaline Phosphatase 72 U/L (38-126); Blood Urea Nitrogen 27 mg/dl (9-20); Carbon Dioxide 23 mmol/L (22-30); Chloride 99 mmol/L (98-107); Estimated Creatinine Clearance 61 ml/min; Glucose 147 mg/dl (70-99); Potassium 4.4 mmol/L (3.5-5.1); Sodium 139 mmol/L (135-145); Total Bilirubin 1.5 mg/dl (0.2-1.3); eGFR > 60.00
[2024-01-16 03:46] LABS: COVID-19 Antigen Positive (Negative)
--- NOTE | 2024-01-16 04:20 | ED.GENMED ---
History of Present Illness
<DORENE Polk - Last Filed: 01/16/24 04:28>
General
Chief Complaint: Weakness
Source: patient
Exam Limitations: none
Time Seen by Provider: 01/16/24 04:04
Nursing documentation reviewed up to this point in time: agreed with
History of Present Illness
History of Present Illness:
Pt is a 78 y/o M with pmhx of CHF, CAD, [place], prostate cancer who presents with complaints of weakness in the bilateral lower extremities x3 hours. He reported that he sat down on the floor for 1 hour and was unable to get himself back up. The pt is
recovering from Covid diagnosed 10 days ago and was given an 8 day course of steroid from his PCP, which he finishes tomorrow. He has complaints of a productive cough for a couple of weeks with green sputum. There is an associated VELA. Denies nausea,
vomiting, constipation, diarrhea, shortness of breath, chest pain.
Past History
<DORENE Polk - Last Filed: 01/16/24 04:28>
Past History
ED Past Medical History: CAD, Cancer (Prostate), CHF, GERD, HTN, Hypercholesterolemia, [place], Psychiatric and Other (angioedema, diverticulitis)
ED Past Surgical History: Cardiac
Patient has exhibited threatening behavior?: No
Social History
Tobacco: Former smoker
Alcohol: Daily (2 glasses of wine per day)
Drug: None
Living: alone
Employment: Employed
Family History
Family History: CAD
Review of Systems
<DORENE Polk - Last Filed: 01/16/24 04:28>
Review of Systems
Constitutional: Reports no symptoms
EENT: Reports no symptoms
Respiratory: Reports cough
Cardiac: Reports no symptoms
ABD/GI: Reports no symptoms
: Reports no symptoms
Musculoskeletal: Reports no symptoms
Skin: Reports no symptoms
Neurological: Reports weakness (bilateral lower extremities)
Endocrine: Reports no symptoms
Hematologic/Lymphatic: Reports no symptoms
Psychiatric: Reports no symptoms
Phy Exam
<DORENE Polk - Last Filed: 01/16/24 04:28>
General Physical Exam
General Presentation: well appearing and mild distress
General age: appears stated age
General Skin: warm and dry
General Habitus: normal
General Mental: alert
General Hydration: appears well hydrated
ENT Exam
ENT Exam: neck supple
Eye Exam
Eye Exam: cornea clear and conjunctiva normal
Cardiovascular Exam
Cardiovascular Exam: normal peripheral pulses and tachycardia
Pulmonary Exam
Pulmonary Exam: lungs clear and decreased breath sounds
Cough: hacking cough and productive cough
Gastrointestinal Exam
Gastrointestinal Exam: soft and non distended
Neurological Exam
Neurological Exam: alert, oriented x3, no motor deficits, normal reflexs, no sensory deficits and speech normal
Musculoskeletal Exam
Musculoskeletal Exam: full ROM, edema and neuro vasc intact
Skin Exam
Skin Exam: normal color and warm/dry
Psychiatric Exam
Psychiatric Exam: normal mood/affect
Course
<DORENE Polk - Last Filed: 01/16/24 04:28>
Orders/Labs/Results
Orders:
Orders
01/16/24 03:17
Electrocardiogram (*1) Urgent
Reason for Study: Fatigue / Weakness
CXR2 [CR Chest - 2 Views ] Urgent
Comment:
Reason For Exam: cough
01/16/24 03:18
EKG- Treatment ONCE
01/16/24 03:19
CMP [Comprehensive Metabolic Panel] Urgent
COVID-19 Antigen Urgent
Source: Nasal Swab
Complete Blood Count/With Diff Urgent
Urinalysis Reflex To Culture Urgent
Date Specimen was Collected: 01/16/24
Time Specimen was Collected: 03:18
Urine Microscopic Reflex Cult Urgent
Urine Culture Urgent
DANNY Source: U
Specimen Description:
Date Specimen was Collected: 01/16/24
Time Specimen was Collected: 03:18
01/16/24 04:20
0.9% Sodium Chloride 1000 ml [Nss] 1,000 ml IV BOLUS
01/16/24 05:24
Fosfomycin [Monurol] 3 gm PO ONCE ONE
01/16/24 05:36
Ambulate Patient-Treatment ONCE
Abnormal Lab Results
01/16/24
03:19
MCH 32.0 H pg
(27.0-31.0)
RDW 14.7 H %
(11.5-14.5)
Abs Immat Gran (auto) 0.2 H 10^3/uL
(0-0.05)
Absolute Lymphs (auto) 0.5 L 10^3/uL
(1.2-3.4)
Absolute Monos (auto) 1.0 H 10^3/uL
(0.1-0.6)
Immature Gran % 2.1 H %
(0-0.5)
Neutrophils % 78.7 H %
(42.2-75.2)
Lymphocytes % 6.1 L %
(20.5-51.1)
Monocytes % 12.8 H %
(1.7-9.3)
BUN 27 H mg/dl
(9-20)
Glucose 147 H mg/dl
(70-99)
Total Bilirubin 1.5 H mg/dl
(0.2-1.3)
Ur Occult Blood Reflex 4+ A
(Negative)
Leukocyte Esterase Rfl 2+ A
(Negative)
Urine WBC (Reflex) >100 A /HPF
(0-5)
Urine Bacteria (Reflex) Many A
(Negative)
Urine Glucose 3+ A
(Negative)
Urine Albumin (Reflex) 1+ A
(Neg - Trace)
SARS-CoV-2 Antigen Positive A
(Negative)
01/16/24 03:19
01/16/24 03:19
Vital Signs
Initial and Last Documented VS:
Initial Vital Signs
Temp Pulse Resp BP Pulse Ox
98.2 F 102 34 108/61 94
01/16/24 03:11 01/16/24 03:11 01/16/24 03:11 01/16/24 03:11 01/16/24 03:11
Last Documented Vital Signs
Temp Pulse Resp BP Pulse Ox
100.0 F 85 32 117/64 95
01/16/24 06:07 01/16/24 06:00 01/16/24 06:00 01/16/24 06:00 01/16/24 06:00
<Candido Strauss, DO - Last Filed: 01/16/24 06:47>
Orders/Labs/Results
Orders:
Orders
01/16/24 03:17
Electrocardiogram (*1) Urgent
Reason for Study: Fatigue / Weakness
CXR2 [CR Chest - 2 Views ] Urgent
Comment:
Reason For Exam: cough
01/16/24 03:18
EKG- Treatment ONCE
01/16/24 03:19
CMP [Comprehensive Metabolic Panel] Urgent
COVID-19 Antigen Urgent
Source: Nasal Swab
Complete Blood Count/With Diff Urgent
Urinalysis Reflex To Culture Urgent
Date Specimen was Collected: 01/16/24
Time Specimen was Collected: 03:18
Urine Microscopic Reflex Cult Urgent
Urine Culture Urgent
DANNY Source: U
Specimen Description:
Date Specimen was Collected: 01/16/24
Time Specimen was Collected: 03:18
01/16/24 04:20
0.9% Sodium Chloride 1000 ml [Nss] 1,000 ml IV BOLUS
01/16/24 05:24
Fosfomycin [Monurol] 3 gm PO ONCE ONE
01/16/24 05:36
Ambulate Patient-Treatment ONCE
Abnormal Lab Results
01/16/24
03:19
MCH 32.0 H pg
(27.0-31.0)
RDW 14.7 H %
(11.5-14.5)
Abs Immat Gran (auto) 0.2 H 10^3/uL
(0-0.05)
Absolute Lymphs (auto) 0.5 L 10^3/uL
(1.2-3.4)
Absolute Monos (auto) 1.0 H 10^3/uL
(0.1-0.6)
Immature Gran % 2.1 H %
(0-0.5)
Neutrophils % 78.7 H %
(42.2-75.2)
Lymphocytes % 6.1 L %
(20.5-51.1)
Monocytes % 12.8 H %
(1.7-9.3)
BUN 27 H mg/dl
(9-20)
Glucose 147 H mg/dl
(70-99)
Total Bilirubin 1.5 H mg/dl
(0.2-1.3)
Ur Occult Blood Reflex 4+ A
(Negative)
Leukocyte Esterase Rfl 2+ A
(Negative)
Urine WBC (Reflex) >100 A /HPF
(0-5)
Urine Bacteria (Reflex) Many A
(Negative)
Urine Glucose 3+ A
(Negative)
Urine Albumin (Reflex) 1+ A
(Neg - Trace)
SARS-CoV-2 Antigen Positive A
(Negative)
01/16/24 03:19
01/16/24 03:19
Vital Signs
Initial and Last Documented VS:
Initial Vital Signs
Temp Pulse Resp BP Pulse Ox
98.2 F 102 34 108/61 94
01/16/24 03:11 01/16/24 03:11 01/16/24 03:11 01/16/24 03:11 01/16/24 03:11
Last Documented Vital Signs
Temp Pulse Resp BP Pulse Ox
100.0 F 85 32 117/64 95
01/16/24 06:07 01/16/24 06:00 01/16/24 06:00 01/16/24 06:00 01/16/24 06:00
<DORENE Polk - Last Filed: 01/16/24 04:28>
MDM/Problems Addressed
Differential Diagnosis Includes:
Covid
<DORENE Polk - Last Filed: 01/16/24 04:28>
*Critical Care Note
Total Time (30-74mins, 75-104mins- exclusive of procedures): Not Applicable
ED Attending Note
<DORENE Polk - Last Filed: 01/16/24 04:28>
-
Portions of this chart may have been created with voice recognition software.� Occasional wrong word or��sound alike� substitutions may have occurred due to the inherent limitations of voice recognition software.
<Candido Strauss DO - Last Filed: 01/16/24 06:47>
ED Attending Note
Patient seen and examined by attending physician: Yes
I performed the substantive portion of visit, reviewed & personally made and approve the management plan that is documented in note by myself or SARAVANAN.: Yes
ED Attending Note:
Pleasant 78-year-old male presents with weakness in his bilateral lower extremities. Patient states that he sat down on the floor to 'take a rest 'and cannot get back up. He states that he admitted over to the cell phone to call 911. Patient was
diagnosed with COVID 10 days ago and still states that he has symptoms. He has been trying to drink fluids but admits that his urine is dark brown. Patient was put on an 8-day course of prednisone by his primary care provider. His last dose is
tomorrow. Patient does report headache and slight tachycardia. Patient was seen in conjunction with the PA student. I have reviewed and agree with the history and treatment plan presented. On my independent physical exam, patient is awake,
alert, and oriented x3, sitting up with no distress at this point. Heart is regular rate rhythm. Lungs are clear to auscultation bilaterally without wheezes rales or rhonchi. Abdomen is soft and slightly distended. No hepatosplenomegaly. Skin
is warm and dry patient moves all 4 extremities.
Patient states that he was feeling better. We attempted to ambulate him. He was not able to support his body weight. Patient to be brought into the hospital for further evaluation and possible placement as patient lives in his own home alone.
Discharge Plan
Departure
Patient Disposition: Admit
Date of Disposition: 01/16/24
Time of Disposition: 06:41
Admit to: Med/Surg
Presentation/result/management discussed w/ accepting MD/DO: Hospitalist
Discharge Problem:
Weakness, Dehydration, COVID, Acute UTI
Prescriptions:
No Action
terazosin 5 MG capsule
5 mg PO HS
aspirin 81 MG tablet,delayed release (DR/EC)
81 mg PO DAILY
rosuvastatin [Crestor] 40 MG tablet
40 mg PO HS
bupropion HCl 300 MG tablet extended release 24 hr
300 mg PO DAILY
ropinirole 1 MG tablet
3 mg PO HS
pantoprazole 40 MG tablet,delayed release (DR/EC)
40 mg PO DAILY
alprazolam 0.25 MG tablet
0.25 mg PO Q8HPRN PRN (Reason: anxiety)
Patient Comments:
04/14/2023, patient filled this medication on 11/27/2022 for 30 tablets according to PDMP.
carvedilol 6.25 mg Tablet
6.25 mg PO BID
guaifenesin [Tussin] 100 mg/5 mL Liquid
200 mg PO BID PRN (Reason: cough)
azelastine 137 mcg (0.1 %) Aerosol,[place]
1 spray INTRANASAL BID
Patient Comments:
04/14/2023, patient states that sometimes they take this medication more than two times a day.
psyllium husk 3.4 gram/5.4 gram Powder
2 tsp PO TIDPRN PRN (Reason: constipation)
furosemide [Lasix] 20 MG tablet
40 mg PO DAILY
tramadol 50 mg Tablet
50 mg PO Q6HPRN PRN (Reason: mod sev pain) Qty: 15 0RF
spironolactone 25 mg Tablet
25 mg PO DAILY Qty: 30 2RF
Jardiance 10 mg Tablet
10 mg PO DAILY Qty: 30 2RF
cephalexin 500 mg capsule
500 mg PO TID Qty: 21 0RF
clotrimazole-betamethasone 1-0.05 % cream
1 applic topical BID 28 Days Qty: 45 0RF
prednisone 10 mg Tablet
See Rx Instructions .ROUTE .COMPLEX Qty: 30 0RF
Rx Instructions:
Take By Mouth:
40 mg daily x3 days, 30 mg daily x3 days,
20 mg daily x3 days, 10 mg daily x3 days.
Referrals:
Karly Simmons MD [Family Provider] -
Interventions
Interventions:
*Risk Screen - Suicide Last Done: 01/16/24 03:11
*General Assessment Last Done: 01/16/24 03:11
*Neglect/Abuse Screening Last Done: 01/16/24 03:11
ED- Fall Risk Assessment Last Done: 01/16/24 04:54
*ED COVID-19 Vaccine History Last Done: 01/16/24 03:16
ED- Cardiac Assessment Last Done: 01/16/24 04:54
ED- Neurological Assessment Last Done: 01/16/24 04:54
ED- Pulmonary Assessment Last Done: 01/16/24 04:54
Discharge Date and Time
Print Language: LITHUANIAN
[2024-01-16] MEDS: NSS 1000 IV ×2 (04:30→07:04)
[2024-01-16 04:43] LABS: Urine Albumin 1+ (Neg - Trace); Urine Bilirubin Negative (Negative); Urine Character Slightly Cloudy (Clear); Urine Color Yellow; Urine Glucose 3+ (Negative); Urine Ketone Negative (Negative); Urine Leukocyte 2+ (Negative); Urine Nitrite Negative (Negative); Urine Occult Blood 4+ (Negative); Urine Specific Gravity 1.015 (<1.030); Urine Urobilinogen Negative (Neg - 1+)
[2024-01-16 04:55] LABS: Urine Amorphous Seen; Urine Bacteria Many (Negative); Urine Mucus Many; Urine Squamous Cell >30 /LPF (Few); Urine White Cell >100 /HPF (0-5)
[2024-01-16] MEDS: MONUROL 3 GM PO (05:52)
--- NOTE | 2024-01-16 06:04 | EDRN ---
Patient was unable to sit up without falling over, laid patient back into bed and informed Dr. Strauss on how patient did and updated temp of 100.0
--- NOTE | 2024-01-16 12:50 | PTCARENOTE ---
EKG obtained and forwarded to Dr. Monroy via tiger text [id number]. Placed in chart
[2024-01-16] MEDS: PROTONIX 40 MG PO (12:55)
[2024-01-16] MEDS: ASPIR LOW (ENTERIC COATED) 81 MG PO (12:55)
[2024-01-16] MEDS: WELLBUTRIN XL (24 hour extended release) 300 MG PO (12:55)
[2024-01-16] MEDS: COREG 6.25 MG PO ×2 (12:56→21:34)
[2024-01-16] MEDS: STERILE WATER FOR INJECTION 10 ML IV (12:57)
[2024-01-16] MEDS: FARXIGA 5 MG PO (12:57)
[2024-01-16] MEDS: ROCEPHIN 1000 MG IV (12:57)
[2024-01-16] MEDS: DETROL LA 4 MG PO (12:57)
--- NOTE | 2024-01-16 15:01 | HPS.HSE ---
Family Physician
-
Family Physician: Karly Simmons
Chief Complaint
-
Generalized weakness
History of Present Illness
78-year-old male with a past medical history of CHF, CAD, [place], prostate cancer status postresection, GERD, and anxiety/depression presents with generalized weakness. Patient was diagnosed with coronavirus a few weeks ago. He was seen in the
emergency room on 01/08/2024 for cough. Since then, he reports getting weaker. Patient lives alone. He reports being weak in his bilateral lower extremities. He states that he lowered himself on the floor, and sat there for 1 hour because he was
not able to get up. He states that he was treated for COVID by his PCP with a course of steroids. Currently, he has a dry cough. No fever, no chest pain, no shortness of breath. No nausea, no vomiting, no diarrhea.
Medical History
Past Medical History
Past Medical History: Reports CAD, Cancer (Prostate), CHF, HTN, Hypercholesterolemia, [place] and Psychiatric
Past Surgical History: Reports Cardiac (triple bypass, cardiac stent) and Urological (Prostate surgery)
Social History
Tobacco: Former Smoker
Alcohol: None
Drug: None
Family History
Family History: Not pertinent
Allergies / Home Medications
Allergies reflects when Allergies were last updated in [facility].
Home Medications with original date entered in [facility]
Allergy/Medication List:
Allergies
Allergy/AdvReac Type Severity Reaction Status Date / Time
lisinopril Allergy Angioedema Verified 01/16/24 03:04
pollen extracts Allergy nasal Verified 01/16/24 03:04
symptoms
Home Medications Table - record
�Medication �Instructions �Recorded �Confirmed
aspirin 81 mg tablet,delayed 81 mg PO DAILY Blood clot 12/15/09 01/16/24
release prevention/tx
terazosin 5 mg capsule 5 mg PO HS Blood pressure 12/15/09 01/16/24
rosuvastatin 40 mg tablet (Crestor) 40 mg PO HS High cholesterol 10/20/13 01/16/24
bupropion HCl 300 mg 24 hr tablet, 300 mg PO DAILY Mental Health 08/05/19 01/16/24
extended release
pantoprazole 40 mg tablet,delayed 40 mg PO DAILY Gastrointestinal 10/31/19 01/16/24
release issue
ropinirole 1 mg tablet 3 mg PO HS Movement Disorder 10/31/19 01/16/24
alprazolam 0.25 mg tablet 0.25 mg PO Q8HPRN PRN anxiety 11/09/19 01/16/24
azelastine 137 mcg (0.1 %) nasal 1 spray intranasal BID Allergies 04/14/23 01/16/24
spray
carvedilol 6.25 mg tablet 6.25 mg PO BID Heart Failure 04/14/23 01/16/24
furosemide 20 mg tablet (Lasix) 40 mg PO DAILY Fluid 04/14/23 01/16/24
Retention/Swelling
guaifenesin 100 mg/5 mL oral 200 mg PO BID PRN cough 04/14/23 01/16/24
liquid (Tussin)
psyllium husk 3.4 gram/5.4 gram 2 tsp PO TIDPRN PRN constipation 04/14/23 01/16/24
oral powder
spironolactone 25 mg tablet 25 mg PO DAILY HTN #30 tabs 04/19/23 01/16/24
tramadol 50 mg tablet 50 mg PO Q6HPRN PRN mod sev pain 04/19/23 01/16/24
#15 tabs
prednisone 10 mg tablet See Rx Instructions .Route 01/08/24 01/16/24
.COMPLEX #30 tabs
cetirizine 10 mg tablet (Zyrtec) 10 mg PO DAILYPRN PRN allergies 01/16/24 01/16/24
empagliflozin 25 mg tablet 12.5 mg PO DAILY 01/16/24 01/16/24
(Jardiance)
solifenacin 10 mg tablet 10 mg PO DAILY 01/16/24 01/16/24
tolterodine 2 mg capsule,extended 2 mg PO DAILY 01/16/24 01/16/24
release 24 hr
trazodone 50 mg tablet 50 mg PO HSPRN PRN sleep 01/16/24 01/16/24
Review of Systems
-
A 12 point ROS was completed and negative except as noted: Yes
Physical Exam
Vital Signs
Vital Signs
Temp Pulse Resp BP Pulse Ox
98.2 F 63 20 135/71 100
01/16/24 11:55 01/16/24 12:56 01/16/24 11:55 01/16/24 12:56 01/16/24 11:55
Physical Exam
General: No Apparent Distress
HEENT: NormoCephalic, Anicteric and Moist mucous membranes
Respiratory: Clear
Cardiac: S1/S2 and Regular Rhythm
GI: Soft, Non Tender, Non Distended and Normal Bowel Sounds
Musculoskeletal: No Clubbing, No Cyanosis and No Edema
Skin: Warm
Neuro: Awake, Alert and Oriented
Psych: Calm
Laboratory Results
-
01/16/24 03:19
01/16/24 03:19
Laboratory Results
Total Bilirubin 1.5 mg/dl (0.2-1.3) H 01/16/24 03:19
AST 34 U/L (17-59) 01/16/24 03:19
ALT 41 U/L (0-50) 01/16/24 03:19
Alkaline Phosphatase 72 U/L (38-126) 01/16/24 03:19
Impression/Plan
-
HPI: 78-year-old male with a past medical history of CHF, CAD, [place], prostate cancer status postresection, GERD, and anxiety/depression presents with generalized weakness. Patient was diagnosed with coronavirus a few weeks ago. He was seen in the
emergency room on 01/08/2024 for cough. Since then, he reports getting weaker. Patient lives alone. He reports being weak in his bilateral lower extremities. He states that he lowered himself on the floor, and sat there for 1 hour because he was
not able to get up. He states that he was treated for COVID by his PCP with a course of steroids. Currently, he has a dry cough. No fever, no chest pain, no shortness of breath. No nausea, no vomiting, no diarrhea.
#Generalized weakness
Patient lives alone
Consult PT/OT
#Possible urinary tract infection
Urine analysis shows bacteria, but it is not a clean-catch
Continue IV antibiotics for now, follow-up on urine culture
#Recent coronavirus
Unclear actual date of onset
Will isolate for now
#Chronic congestive heart failure
Hold Lasix, spironolactone due to soft BP
Continue Farxiga, Coreg
#History of prostate cancer status post resection
Continue Detrol
#GERD
Continue PPI
Next hide anxiety/depression
Continue Wellbutrin, trazodone prn
DVT prophylaxis�subcu Lovenox
Full code
Total time spent to see the patient on the floor, examine the patient, review data and lab results, discuss treatment plan with patient, nursing staff around 76 minutes.
[2024-01-16] MEDS: LOVENOX 40 MG SC (17:56)
[2024-01-16] MEDS: CRESTOR 40 MG PO (21:34)
[2024-01-16] MEDS: HYTRIN 5 MG PO (21:35)
[2024-01-16] MEDS: REQUIP 3 MG PO (21:35)
[2024-01-16] MEDS: TYLENOL 650 MG PO (21:36)
[2024-01-16] MEDS: ROBITUSSIN 200 MG PO (21:36)
[2024-01-17 06:00] VITALS: BMI 30.6
[2024-01-17 07:00] VITALS: BP 103/62
--- NOTE | 2024-01-17 07:22 | W.PN.HOSP.TC ---
Today's Communication/Plan
-
see bold
Assessment / Plan
Assessment / Plan
HPI: 78-year-old male with a past medical history of CHF, CAD, [place], prostate cancer status postresection, GERD, and anxiety/depression presents with generalized weakness. Patient was diagnosed with coronavirus a few weeks ago. He was seen in the
emergency room on 01/08/2024 for cough. Since then, he reports getting weaker. Patient lives alone. He reports being weak in his bilateral lower extremities. He states that he lowered himself on the floor, and sat there for 1 hour because he was
not able to get up. He states that he was treated for COVID by his PCP with a course of steroids. Currently, he has a dry cough. No fever, no chest pain, no shortness of breath. No nausea, no vomiting, no diarrhea.
#Generalized weakness
Patient lives alone
PT/OT - rec SNF, CM on board
#Acute urinary tract infection
Reports dysuria
Urine analysis shows bacteria, but it is not a clean-catch
Continue IV rocephin D2, follow-up on urine culture
#Recent coronavirus
Current symptoms include dry cough, status post course of steroids by PCP
Unclear actual date of onset
Will isolate for now
#Chronic congestive heart failure
Hold Lasix, spironolactone due to soft BP
Continue Farxiga, Coreg
#History of prostate cancer status post resection
Continue Detrol
#GERD
Continue PPI
#Anxiety/depression
Continue Wellbutrin, trazodone prn
DVT prophylaxis�subcu Lovenox
Full code
Total time spent to see the patient on the floor, examine the patient, review data and lab results, discuss treatment plan with patient, nursing staff around 38 minutes.
Physical Exam
General: Obese, no acute distress
HEENT: Normocephalic, Atraumatic, EOMI, MMM
Respiratory: Clear to Auscultation bilaterally
Cardiac: Normal S1/S2, Regular Rate and Rhythm
GI: Soft, Nontender, Nondistended, Normal Bowel Sounds
Extremities: No Clubbing, Cyanosis, or Edema
Neuro: Nonfocal/Grossly Intact
Psych: Calm, Cooperative
Derm: No Visible lesions
Anticipated Discharge: 24 - 48 hours
Subjective/Interval History
-
Date of Service: January 17, 2024
Reports feeling minimally better. Dysuria improved. No fever, no vomiting.
Objective Data
-
Vital Signs:
Vital Signs
Temp Pulse Resp BP Pulse Ox
98.4 F 52 16 104/51 93
01/16/24 23:09 01/16/24 23:09 01/16/24 23:09 01/16/24 23:09 01/16/24 23:09
I&O
01/16/24 01/17/24 01/18/24
06:59 06:59 06:59
Intake Total 1860 / 1860
Output Total 200 / 200
Balance 1659 / 1660
[2024-01-17] MEDS: WELLBUTRIN XL (24 hour extended release) 300 MG PO (07:46)
[2024-01-17] MEDS: DETROL LA 4 MG PO (07:46)
[2024-01-17] MEDS: PROTONIX 40 MG PO (07:46)
[2024-01-17] MEDS: ASPIR LOW (ENTERIC COATED) 81 MG PO (07:46)
[2024-01-17] MEDS: FARXIGA 5 MG PO (07:46)
[2024-01-17] MEDS: COREG 6.25 MG PO ×2 (07:46→20:49)
[2024-01-17] MEDS: STERILE WATER FOR INJECTION 10 ML IV (12:01)
[2024-01-17] MEDS: ROCEPHIN 1000 MG IV (12:02)
[2024-01-17 15:00] VITALS: BP 145/72
--- NOTE | 2024-01-17 15:32 | CM ---
Spoke with patient.
IA completed. Case management consult for discharge planning completed.
Patient lives in a 2 story apartment with 1 step to enter.
PT recommends home health. Discussed homebound status as he states he works at [employer].
Discussed options & prefers [facility]. Referral placed in care port.
PCP: Karly Simmons
Pharmacy: [facility]
PLAN: Discharge to home with visiting nurse.
--- NOTE | 2024-01-17 15:48 | VNURNOTE ---
Home Health Liaison spoke with patient to discuss [facility] nurse/therapy, visits, schedule and homebound status. Reinforced and explained to patient homebound status. Patient is agreeable and understands that visits at home will be 2-3 x per week to
assess and teach medical management. Patient is aware that [facility] will contact them for start of care in 1-2 days after discharge from .
[facility] referral completed in Care Port by CM.
[2024-01-17] MEDS: LOVENOX 40 MG SC (17:46)
[2024-01-17] MEDS: CRESTOR 40 MG PO (21:43)
[2024-01-17] MEDS: REQUIP 3 MG PO (21:43)
[2024-01-17] MEDS: HYTRIN 5 MG PO (21:43)
[2024-01-17] MEDS: ROBITUSSIN 200 MG PO (23:03)
[2024-01-17 23:49] VITALS: BP 135/76
[2024-01-18 07:00] VITALS: BP 132/76
[2024-01-18] MEDS: WELLBUTRIN XL (24 hour extended release) 300 MG PO (08:32)
[2024-01-18] MEDS: ASPIR LOW (ENTERIC COATED) 81 MG PO (08:32)
[2024-01-18] MEDS: PROTONIX 40 MG PO (08:32)
[2024-01-18] MEDS: FARXIGA 5 MG PO (08:33)
[2024-01-18] MEDS: COREG 6.25 MG PO (08:33)
[2024-01-18] MEDS: DETROL LA 4 MG PO (08:33)
--- NOTE | 2024-01-18 08:52 | W.PN.HOSP.TC ---
Addendum entered and electronically signed by Jourdan Monroy MD 01/18/24 14:54:
Patient has chronic systolic CHF
Original Note:
Today's Communication/Plan
-
see bold
Assessment / Plan
Assessment / Plan
HPI: 78-year-old male with a past medical history of CHF, CAD, [place], prostate cancer status postresection, GERD, and anxiety/depression presents with generalized weakness. Patient was diagnosed with coronavirus a few weeks ago. He was seen in the
emergency room on 01/08/2024 for cough. Since then, he reports getting weaker. Patient lives alone. He reports being weak in his bilateral lower extremities. He states that he lowered himself on the floor, and sat there for 1 hour because he was
not able to get up. He states that he was treated for COVID by his PCP with a course of steroids. Currently, he has a dry cough. No fever, no chest pain, no shortness of breath. No nausea, no vomiting, no diarrhea.
#Generalized weakness
Patient lives alone
PT/OT - rec HH, CM on board
#Acute urinary tract infection
Reports dysuria
Urine analysis shows bacteria, but it is not a clean-catch
Continue IV rocephin D3, urine cultures growing 100,000 colonies of E. coli, follow-up on sensitivities
#Recent coronavirus
Current symptoms include dry cough, status post course of steroids by PCP
Unclear actual date of onset
Will isolate for now
#Chronic congestive heart failure
Hold Lasix due to soft BP
Resume spironolactone
Continue Farxiga, Coreg
#History of prostate cancer status post resection
Continue Detrol
#GERD
Continue PPI
#Anxiety/depression
Continue Wellbutrin, trazodone prn
DVT prophylaxis�subcu Lovenox
Full code
Total time spent to see the patient on the floor, examine the patient, review data and lab results, discuss treatment plan with patient, nursing staff around 41 minutes.
Physical Exam
General: Obese, no acute distress
HEENT: Normocephalic, Atraumatic, EOMI, MMM
Respiratory: Clear to Auscultation bilaterally
Cardiac: Normal S1/S2, Regular Rate and Rhythm
GI: Soft, Nontender, Nondistended, Normal Bowel Sounds
Extremities: No Clubbing, Cyanosis, or Edema
Neuro: Nonfocal/Grossly Intact
Psych: Calm, Cooperative
Derm: No Visible lesions
Anticipated Discharge: Within 24 hours
Subjective/Interval History
-
Date of Service: January 18, 2024
Reports feeling weak, improved from admission. Dysuria improved. Feels congested, and has a dry cough. No fever, no vomiting.
Objective Data
-
Vital Signs:
Vital Signs
Temp Pulse Resp BP Pulse Ox
97.7 F 56 16 132/76 93
01/18/24 07:00 01/18/24 08:33 01/18/24 07:00 01/18/24 08:33 01/18/24 07:00
I&O
01/17/24 01/18/24 01/19/24
06:59 06:59 06:59
Intake Total 1860 / 1860 1780 / 1780
Output Total 200 / 200 1914 / 191
Balance 1660 / 1660 -135 / -135
--- NOTE | 2024-01-18 09:11 | PN.CDI ---
CDI
- -
CDI:
Physician Documentation Request
Admit Date: 01/16/24 10:52
Dear Doctor Do,
Please review the following and provide your response in the progress notes.
Clinical Indicators:
- 01/16 PN 'Chronic congestive heart failure' without specificity
- 01/15 H&P home medication furosemide 40mg daily
- 03/25/23 Echo EF 35-40%
- 'moderately reduced left ventricular systolic function'
- 'Stage I diastolic dysfunction suggestive of abnormal relaxation'
Please provide further specificity regarding the most likely type of CHF you are evaluating, treating or monitoring.
Chronic systolic CHF
Chronic combined systolic and diastolic CHF
Other
Use of terms such as suspected, likely, concern for, or probable (associated with a specific diagnosis that is being evaluated, monitored, or treated as if it exists) are acceptable and can be coded in the inpatient setting, when documented at the
time of discharge.
Thank you,
Niesha Ramirez RN
CDI Specialist
Please use your independent medical judgment in providing your response.
[2024-01-18] MEDS: ROBITUSSIN 200 MG PO ×2 (10:12→20:02)
[2024-01-18] MEDS: ROCEPHIN 1000 MG IV (11:54)
[2024-01-18] MEDS: STERILE WATER FOR INJECTION 10 ML IV (11:54)
[2024-01-18 15:30] VITALS: BP 142/84
[2024-01-18] MEDS: ALDACTONE 25 MG PO (15:50)
[2024-01-18 16:24] VITALS: BP 142/83; PULSE 74; O2SAT 97
[2024-01-18 16:50] VITALS: BMI 30.3
--- NOTE | 2024-01-18 17:04 | CM ---
Chart reviewed.
Patient set up with [facility].
PT saw patient today who states he is still too weak to go home.
? SNF vs. - CM to review options with patient.
PLAN: Discharge when stable, [facility] referral in place.
[2024-01-18] MEDS: LOVENOX 40 MG SC (17:33)
[2024-01-18] MEDS: CRESTOR 40 MG PO (20:01)
[2024-01-18] MEDS: COREG 3.125 MG PO (20:01)
[2024-01-18] MEDS: REQUIP 3 MG PO (20:02)
[2024-01-18] MEDS: HYTRIN 5 MG PO (20:02)
[2024-01-18 23:24] VITALS: BP 109/74
[2024-01-19] MEDS: TESSALON PERLES 100 MG PO (01:21)
[2024-01-19] MEDS: ANESTHETIC LOZENGE 1 LOZENGE PO ×2 (05:19→20:15)
[2024-01-19 06:00] VITALS: BMI 30.2
[2024-01-19 07:39] VITALS: BP 128/73
--- NOTE | 2024-01-19 08:00 | PN.CDI ---
CDI
- -
CDI:
Physician Documentation Request
Admit Date: 01/16/24 10:52
Dear Doctor Do,
Please review the following and provide your response in the progress notes.
Clinical Indicators:
- 01/17 PN 'Recent coronavirus'
- 'Current symptoms include dry cough'
- 'Will isolate for now'
- 01/15 Covid positive
Please clarify/update the status of Covid:
Covid 19 infection
Noninfectious Covid 19
Other
Thank you,
Niesha Ramirez RN
CDI Specialist
Please use your independent medical judgment in providing your response.
[2024-01-19] MEDS: DETROL LA 4 MG PO (08:14)
[2024-01-19] MEDS: COREG 3.125 MG PO ×2 (08:15→20:15)
[2024-01-19] MEDS: WELLBUTRIN XL (24 hour extended release) 300 MG PO (08:15)
[2024-01-19] MEDS: PROTONIX 40 MG PO (08:15)
[2024-01-19] MEDS: ALDACTONE 25 MG PO (08:15)
[2024-01-19] MEDS: FARXIGA 5 MG PO (08:15)
[2024-01-19] MEDS: ASPIR LOW (ENTERIC COATED) 81 MG PO (08:15)
--- NOTE | 2024-01-19 08:38 | W.PN.HOSP.TC ---
Today's Communication/Plan
-
see bold
Assessment / Plan
Assessment / Plan
HPI: 78-year-old male with a past medical history of CHF, CAD, [place], prostate cancer status postresection, GERD, and anxiety/depression presents with generalized weakness. Patient was diagnosed with coronavirus a few weeks ago. He was seen in the
emergency room on 01/08/2024 for cough. Since then, he reports getting weaker. Patient lives alone. He reports being weak in his bilateral lower extremities. He states that he lowered himself on the floor, and sat there for 1 hour because he was
not able to get up. He states that he was treated for COVID by his PCP with a course of steroids. Currently, he has a dry cough. No fever, no chest pain, no shortness of breath. No nausea, no vomiting, no diarrhea.
#Generalized weakness
Patient lives alone, PT rec HH vs SNF
Medically stable for discharge to short-term rehab when bed available
#Acute urinary tract infection
Reports dysuria
Urine analysis shows bacteria, but it is not a clean-catch
Urine cultures growing pansensitive E. coli
Change IV Rocephin to Augmentin to complete a 7-day course
#Subacute coronavirus infection
Current symptoms include dry cough, status post course of steroids by PCP
Unclear actual date of onset
Will isolate for now
#Chronic systolic congestive heart failure
Hold Lasix due to soft BP
Resumed spironolactone
Continue Farxiga
Coreg dose decreased due to bradycardia
#History of prostate cancer status post resection
Continue Detrol
#GERD
Continue PPI
#Anxiety/depression
Continue Wellbutrin, trazodone prn
DVT prophylaxis�subcu Lovenox
Full code
Total time spent to see the patient on the floor, examine the patient, review data and lab results, discuss treatment plan with patient, nursing staff around 38 minutes.
Physical Exam
General: Obese, no acute distress
HEENT: Normocephalic, Atraumatic, EOMI, MMM
Respiratory: Clear to Auscultation bilaterally
Cardiac: Normal S1/S2, Regular Rate and Rhythm
GI: Soft, Nontender, Nondistended, Normal Bowel Sounds
Extremities: No Clubbing, Cyanosis, or Edema
Neuro: Nonfocal/Grossly Intact
Psych: Calm, Cooperative
Derm: No Visible lesions
Anticipated Discharge: Within 24 hours
Subjective/Interval History
-
Date of Service: January 18, 2024
Reports a nagging cough. No fever, no vomiting. Continues to have dysuria.
Objective Data
-
Vital Signs:
Vital Signs
Temp Pulse Resp BP Pulse Ox
97.7 F 56 16 132/76 93
01/18/24 07:00 01/18/24 08:33 01/18/24 07:00 01/18/24 08:33 01/18/24 08:00
I&O
01/17/24 01/18/24 01/19/24
06:59 06:59 06:59
Intake Total 1859 / 0 1779 / 1779
Output Total 200 / 200 1914 / 1914
Balance 1660 / 1660 -135 / -135
--- NOTE | 2024-01-19 10:59 | CM ---
Spoke with patient regarding options SNF as he states too weak to go home.
[facility] referral placed. Spoke with [place] liaison at [facility] & they can accept.
PLAN: Discharge to [facility] when medically stable.
[facility]
Report #: [phone]
Fax #: [phone]
[2024-01-19] MEDS: STERILE WATER FOR INJECTION 10 ML IV (11:37)
[2024-01-19] MEDS: ROCEPHIN 1000 MG IV (11:38)
[2024-01-19 15:56] VITALS: BP 120/72
[2024-01-19] MEDS: LOVENOX 40 MG SC (18:01)
[2024-01-19] MEDS: AUGMENTIN 875 MG/125 MG 1 TABLET PO (20:15)
[2024-01-19] MEDS: ROBITUSSIN 200 MG PO (20:15)
[2024-01-19] MEDS: CRESTOR 40 MG PO (21:28)
[2024-01-19] MEDS: HYTRIN 5 MG PO (21:28)
[2024-01-19] MEDS: REQUIP 3 MG PO (21:28)
[2024-01-19 23:37] VITALS: BP 148/79
[2024-01-20] MEDS: TESSALON PERLES 100 MG PO (02:12)
[2024-01-20 06:00] VITALS: BMI 29.9
[2024-01-20] MEDS: ROBITUSSIN 200 MG PO (06:36)
[2024-01-20 07:00] VITALS: BP 132/83
--- NOTE | 2024-01-20 08:53 | W.PN.HOSP.TC ---
Today's Communication/Plan
-
Discharge to [facility] today
Assessment / Plan
Assessment / Plan
HPI: 78-year-old male with a past medical history of CHF, CAD, [place], prostate cancer status postresection, GERD, and anxiety/depression presents with generalized weakness. Patient was diagnosed with coronavirus a few weeks ago. He was seen in the
emergency room on 01/08/2024 for cough. Since then, he reports getting weaker. Patient lives alone. He reports being weak in his bilateral lower extremities. He states that he lowered himself on the floor, and sat there for 1 hour because he was
not able to get up. He states that he was treated for COVID by his PCP with a course of steroids. Currently, he has a dry cough. No fever, no chest pain, no shortness of breath. No nausea, no vomiting, no diarrhea.
#Generalized weakness
Patient lives alone, PT rec HH vs SNF
Medically stable for discharge to short-term rehab when bed available
#Acute urinary tract infection
Reports dysuria
Urine analysis shows bacteria, but it is not a clean-catch
Urine cultures growing pansensitive E. coli
Changed IV Rocephin to Augmentin to complete a 7-day course
#Subacute coronavirus infection
Current symptoms include dry cough, status post course of steroids by PCP
Unclear actual date of onset
Will isolate through 01/24
Supportive care
#Chronic systolic congestive heart failure
Resumed Lasix
Resumed spironolactone
Continue Farxiga
Coreg dose decreased due to bradycardia - continue reduced dose upon dc
#History of prostate cancer status post resection
Continue Detrol
#GERD
Continue PPI
#Anxiety/depression
Continue Wellbutrin, trazodone prn
DVT prophylaxis�subcu Lovenox
Full code
Physical Exam
General: Obese, no acute distress
HEENT: Normocephalic, Atraumatic, EOMI, MMM
Respiratory: Clear to Auscultation bilaterally
Cardiac: Normal S1/S2, Regular Rate and Rhythm
GI: Soft, Nontender, Nondistended, Normal Bowel Sounds
Extremities: No Clubbing, Cyanosis, or Edema
Neuro: Nonfocal/Grossly Intact
Psych: Calm, Cooperative
Derm: No Visible lesions
Anticipated Discharge: Today
Subjective/Interval History
-
Date of Service: January 20, 2024
C/o rhinorrhea, nasal congestion, cough. No fever, no vomiting.
Objective Data
-
Vital Signs:
Vital Signs
Temp Pulse Resp BP Pulse Ox
97.8 F 74 18 132/83 97
01/20/24 07:00 01/20/24 07:00 01/20/24 07:00 01/20/24 07:00 01/20/24 07:00
I&O
01/19/24 01/20/24 01/21/24
06:59 06:59 06:59
Intake Total 2400 / 2400 480 / 480
Output Total 1550 / 1550 1700 / 1700
Balance 850 / 850 -1220 / -1220
[2024-01-20] MEDS: ALDACTONE 25 MG PO (09:10)
[2024-01-20] MEDS: WELLBUTRIN XL (24 hour extended release) 300 MG PO (09:10)
[2024-01-20] MEDS: FARXIGA 5 MG PO (09:11)
[2024-01-20] MEDS: ASPIR LOW (ENTERIC COATED) 81 MG PO (09:11)
[2024-01-20] MEDS: COREG 3.125 MG PO (09:11)
[2024-01-20] MEDS: PROTONIX 40 MG PO (09:11)
[2024-01-20] MEDS: DETROL LA 4 MG PO (09:12)
[2024-01-20] MEDS: AUGMENTIN 875 MG/125 MG 1 TABLET PO (09:12)
[2024-01-20] MEDS: LASIX 40 MG PO (10:19)
[2024-01-20 12:11] VITALS: BP 139/89; PULSE 76; O2SAT 98
[2024-01-20 12:56] VITALS: BP 139/89
--- NOTE | 2024-01-20 13:02 | CM ---
Patient seen at bedside.
Agreeable to [facility]. [place] liaison notified, bed available.
tt Dr. Monroy
IMM explained & signed.
Called [facility] regarding w/c van & patient w/COVID - ok for w/c van.
Spoke to patient regarding cost
PLAN: Discharge to [facility]
Report #: [phone]
Fax #: [phone]
--- NOTE | 2024-01-20 14:27 | W.DCSUMMARY ---
Discharge Summary
Discharge Data
Date of Admission: 01/16/24
Date of Discharge: 01/20/24
-
Pending Results: No
Hospital Course
Discharge diagnosis:
Generalized weakness
Acute urinary tract infection
Subacute coronavirus infection
Chronic systolic congestive heart failure
History of prostate cancer status post resection
Gastroesophageal reflux disease
Anxiety/depression
Chest x-ray:
No radiographic evidence of acute cardiopulmonary abnormality.
Hospital course:
78-year-old male with a past medical history of CHF, CAD, [place], prostate cancer status postresection, GERD, and anxiety/depression was admitted for generalized weakness secondary to an acute urinary tract infection and subacute coronavirus infection.
Patient lives alone, and was unable to walk around the house. He recently was diagnosed with coronavirus. He completed a course of steroids prescribed by his PCP. It is unclear the exact date of his infection. He received supportive treatment,
and needs isolation through 01/25/2024.
Patient was also found to have an acute urinary tract infection. He was treated with IV Rocephin. Urine cultures grew out E. coli, pansensitive. He was transitioned to Augmentin to complete a 7-day course.
Patient was bradycardic in the hospital, his heart rate was in the low 50s. He is on Coreg 6.25 mg twice a day. His Coreg was reduced to 3.125 mg twice a day. His bradycardia resolved. He will be discharged on this reduced dose of Coreg.
Patient was seen in conjunction with PT, who recommended home PT versus skilled rehab. Patient opted for skilled rehab since he lives alone. He is medically stable for discharge to short-term rehab. He needs to follow-up with his primary care
doctor 1 week after he leaves rehab.
Disposition: Short-term rehab
Discharge planning: Required 38 minutes
Discharge Plan
-
Patient Disposition: Custodial/SNF
Discharge Diagnosis/Procedures: Acute urinary tract infection, subacute coronavirus infection, weakness
Condition: Fair
Diet: 2 Gram Sodium
Activity: As tolerated
Activity Restrictions/Additional Instructions:
Your heart rate in the hospital was low, your carvedilol was reduced to 3.125 mg twice a day, down from 6.25 mg twice a day.
Continue taking your antibiotics for 3 more days for your urine infection.
It is unclear the exact date of onset for your coronavirus. Recommend isolation through 01/25/2024.
Please follow-up with your primary care doctor 1 week after you leave rehab.
Referrals:
Karly Simmons MD [Family Provider] - in one week
Prescriptions:
New
carvedilol 3.125 mg Tablet
3.125 mg PO BID Qty: 0 0RF
benzonatate 100 mg Capsule
100 mg PO TIDPRN PRN (Reason: Cough) Qty: 0 0RF
amoxicillin-pot clavulanate 875-125 mg Tablet
1 tab PO Q12 3 Days Qty: 6 0RF
Chloraseptic Sore Throat 6-10 mg Lozenge
1 caitlyn PO Q4HPRN PRN (Reason: sore throat) Qty: 0 0RF
Continued
terazosin 5 MG capsule
5 mg PO HS
aspirin 81 MG tablet,delayed release (DR/EC)
81 mg PO DAILY
rosuvastatin [Crestor] 40 MG tablet
40 mg PO HS
bupropion HCl 300 MG tablet extended release 24 hr
300 mg PO DAILY
ropinirole 1 MG tablet
3 mg PO HS
pantoprazole 40 MG tablet,delayed release (DR/EC)
40 mg PO DAILY
guaifenesin [Tussin] 100 mg/5 mL Liquid
200 mg PO BID PRN (Reason: cough)
azelastine 137 mcg (0.1 %) Aerosol,[place]
1 spray INTRANASAL BID
Patient Comments:
04/14/2023, patient states that sometimes they take this medication more than two times a day.
psyllium husk 3.4 gram/5.4 gram Powder
2 tsp PO TIDPRN PRN (Reason: constipation)
furosemide [Lasix] 20 MG tablet
40 mg PO DAILY
tramadol 50 mg Tablet
50 mg PO Q6HPRN PRN (Reason: mod sev pain) Qty: 15 0RF
spironolactone 25 mg Tablet
25 mg PO DAILY Qty: 30 2RF
tolterodine 2 mg Capsule,Extended Release 24hr
2 mg PO DAILY
trazodone 50 mg Tablet
50 mg PO HSPRN PRN (Reason: sleep)
cetirizine [Zyrtec] 10 mg Tablet
10 mg PO DAILYPRN PRN (Reason: allergies)
solifenacin 10 mg Tablet
10 mg PO DAILY
Jardiance 25 mg Tablet
12.5 mg PO DAILY
alprazolam 0.25 MG tablet
0.25 mg PO Q8HPRN PRN (Reason: anxiety) Qty: 5 0RF
Discontinued
carvedilol 6.25 mg Tablet
6.25 mg PO BID
prednisone 10 mg Tablet
See Rx Instructions .ROUTE .COMPLEX Qty: 30 0RF
Rx Instructions:
Take By Mouth:
40 mg daily x3 days, 30 mg daily x3 days,
20 mg daily x3 days, 10 mg daily x3 days.
Discharge Orders:
Discharge Patient (As Directed); Ordered 01/20/24
Ordered By: Jourdan Monroy
Discharge Date and Time
Discharge Date/Time: 01/20/24 16:44
Print Language: KAZAKH
[2024-01-20] MEDS: MAALOX PLUS 1 TABLET PO (14:40)
[2024-01-20] MEDS: PEPCID 20 MG PO (14:40)
[2024-01-20 15:00] VITALS: BP 138/87
== END 2024-01-20 16:44 | DRG 689 ==
LOC: 2 NORTH 10:52
PROVIDERS: ADMITTING PHYSICIAN Family Medicine; EMERGENCY PHYSICIAN Student in an Organized Health Care Education/Training Program; FAMILY PHYSICIAN Family Medicine
DX: N39.0 Urinary tract infection, site not specified (principal); U07.1 COVID-19; I50.22 Chronic systolic (congestive) heart failure; Z87.891 Personal history of nicotine dependence; K21.9 Gastro-esophageal reflux disease without esophagitis; I11.0 Hypertensive heart disease with heart failure; F41.9 Anxiety disorder, unspecified; F32.A Depression, unspecified
CPT/HCPCS: 71046; 80053; 81003; 81015; 85025; 87077; 87086; 87186; 87811; 93005; 96360; 97116; 97162; 97166; 97535; 99285

== ENCOUNTER → 2024-02-22 16:13 | Outpatient (REF) | payer MEDICARE, SELFPAY ==
[2024-02-22 17:15] LABS: Hematocrit 42.8 % (39.0-52.0); Hemoglobin 14.6 g/dL (13.0-18.0); Mean Corp Hgb Conc. 34.1 g/dL (33.0-37.0); Mean Corpuscular Hgb 32.6 pg (27.0-31.0); Mean Corpuscular Volume 95.5 fL (80.0-94.0); Mean Platelet Volume 10.4 fL (7.4-10.4); Platelet Count 151 10^3/uL (130-400); Red Blood Cell Count 4.48 10^6/uL (4.70-6.10); Red Cell Dist. Width 15.3 % (11.5-14.5); White Blood Cell Count 7.8 10^3/uL (4.8-10.8)
[2024-02-22 17:17] LABS: ALT (SGPT) 34 U/L (0-50); AST (SGOT) 31 U/L (17-59); Albumin 4.8 g/dl (3.5-5.0); Alkaline Phosphatase 52 U/L (38-126); Blood Urea Nitrogen 26 mg/dl (9-20); Carbon Dioxide 29 mmol/L (22-30); Chloride 98 mmol/L (98-107); Glucose 120 mg/dl (70-99); HDL Cholesterol 81 mg/dl; Iron 107 ug/dl (49-181); LDL Cholesterol, Calculated 52 mg/dl; Potassium 4.5 mmol/L (3.5-5.1); Sodium 140 mmol/L (135-145); Total Bilirubin 1.3 mg/dl (0.2-1.3); Total Cholesterol 155 mg/dl (50-199); Total Protein 7.5 g/dl (6.3-8.2); Triglyceride 114 mg/dl (10-149); Very Low Density Lipoprotein 22 mg/dl (0-30); eGFR > 60.00
[2024-02-22 17:57] LABS: Pathologist Reviewed No; Segmented Neutrophils 52 % (42-75)
[2024-02-22 17:58] LABS: Atypical Lymphocytes 4 %; Band Neutrophils 0 % (0-3); Lymphocytes 22 % (20-51); Monocytes 22 % (2-9); Normal RBC Morphology Yes; Platelets Checked Yes; Total Cells Counted 100
== END ==
LOC: REG 16:13
PROVIDERS: ATTENDING PHYSICIAN Physician Assistant
DX: I50.22 Chronic systolic (congestive) heart failure (principal); G47.33 Obstructive sleep apnea (adult) (pediatric); Z86.2 Personal history of diseases of the blood and blood-forming organs and certain disorders involving the immune mechanism; Z95.5 Presence of coronary angioplasty implant and graft; I11.0 Hypertensive heart disease with heart failure
CPT/HCPCS: 36415; 80053; 80061; 82728; 83540; 85025

== ENCOUNTER → 2024-04-12 10:00 | Outpatient (REF) | payer MEDICARE, SELFPAY ==
[2024-04-12 17:08] LABS: Urine Albumin Trace (Neg - Trace); Urine Bilirubin Negative (Negative); Urine Character Slightly Cloudy (Clear); Urine Color Straw; Urine Glucose 3+ (Negative); Urine Ketone Negative (Negative); Urine Leukocyte 1+ (Negative); Urine Nitrite Negative (Negative); Urine Occult Blood Negative (Negative); Urine Specific Gravity 1.015 (<1.030); Urine Urobilinogen Negative (Neg - 1+)
[2024-04-12 17:27] LABS: Urine Bacteria Many (Negative); Urine Red Blood Cell 0-2 /HPF (0-2); Urine Squamous Cell None seen /LPF (Few); Urine White Cell 16-20 /HPF (0-5)
== END ==
LOC: CLAB 10:00
PROVIDERS: ATTENDING PHYSICIAN Specialist
DX: R35.0 Frequency of micturition (principal)
CPT/HCPCS: 81003; 81015; 87086; 87088; 87186

== ENCOUNTER → 2024-05-03 08:59 | Outpatient (REF) | payer MEDICARE, SELFPAY | LOC: REG 08:59 | PROVIDERS: ATTENDING PHYSICIAN Specialist; FAMILY PHYSICIAN Physician Assistant | DX: C61 Malignant neoplasm of prostate (principal); R35.0 Frequency of micturition | CPT/HCPCS: 36415; 84153; 87086 ==

== ENCOUNTER 2024-06-18 18:39 | Emergency (ER) | payer MEDICARE, SELFPAY ==
[2024-06-18 18:42] VITALS: BP 144/75
[2024-06-18 19:23] LABS: Hematocrit 42.1 % (39.0-52.0); Hemoglobin 14.2 g/dL (13.0-18.0); Mean Corp Hgb Conc. 33.7 g/dL (33.0-37.0); Mean Corpuscular Hgb 31.7 pg (27.0-31.0); Mean Platelet Volume 10.1 fL (7.4-10.4); Platelet Count 156 10^3/uL (130-400); Red Blood Cell Count 4.48 10^6/uL (4.70-6.10); Red Cell Dist. Width 14.9 % (11.5-14.5); White Blood Cell Count 7.9 10^3/uL (4.8-10.8)
[2024-06-18 19:32] LABS: Absolute Neutrophils -Man Diff 4.4 10^3/uL (1.4-6.5); Band Neutrophils 0 % (0-3); Lymphocytes 25 % (20-51); Monocytes 19 % (2-9); Platelets Checked Yes; Segmented Neutrophils 56 % (42-75)
[2024-06-18 19:34] LABS: Normal RBC Morphology Yes; Total Cells Counted 100
[2024-06-18 19:43] LABS: ALT (SGPT) 25 U/L (0-50); AST (SGOT) 24 U/L (17-59); Alkaline Phosphatase 65 U/L (38-126); Blood Urea Nitrogen 19 mg/dl (9-20); Calcium 9.7 mg/dl (8.4-10.2); Carbon Dioxide 26 mmol/L (22-30); Chloride 96 mmol/L (98-107); Glucose 100 mg/dl (70-99); Potassium 3.7 mmol/L (3.5-5.1); Sodium 135 mmol/L (135-145); Total Bilirubin 1.9 mg/dl (0.2-1.3); Total Protein 7.4 g/dl (6.3-8.2); eGFR > 60.00
[2024-06-18 21:38] VITALS: BP 143/87
[2024-06-18 22:38] LABS: Urine Albumin 2+ (Neg - Trace); Urine Bilirubin Negative (Negative); Urine Character Clear (Clear); Urine Color Yellow; Urine Glucose 4+ (Negative); Urine Ketone 3+ (Negative); Urine Leukocyte Negative (Negative); Urine Nitrite Negative (Negative); Urine Occult Blood 1+ (Negative); Urine Specific Gravity 1.015 (<1.030); Urine Urobilinogen Negative (Neg - 1+)
[2024-06-18 22:49] LABS: Urine Bacteria Few (Negative); Urine Red Blood Cell 0-2 /HPF (0-2); Urine Squamous Cell 0-2 /LPF (Few); Urine White Cell 0-2 /HPF (0-5)
--- NOTE | 2024-06-19 00:01 | ED.GENMED ---
History of Present Illness
General
Chief Complaint: Male Genito-Urinary Symptoms
Source: patient
Exam Limitations: none
Time Seen by Provider: 06/18/24 21:31
Nursing documentation reviewed up to this point in time: agreed with
History of Present Illness
History of Present Illness:
The patient is a 79-year-old man arriving by ambulance with several complaints, particularly urinary incontinence and concerns for possible UTI. Patient reports that he chronically suffers from urinary incontinence and admits that he gets extremely
embarrassed because he is unable to control his urination. He reports that he has been evaluated by urology and the medication given to him for incontinence has not really helped. Additionally, patient reports that he has had ongoing issues with
his balance for a long time and goes to physical therapy 3 days a week for balance therapy. Patient denies any worsening issues with his balance, and denies any vision changes and headache. Patient reports he is primarily here to make sure he does
not have a urinary tract infection.
Past History
Past History
ED Past Medical History: CAD, Cancer (Prostate), CHF, GERD, HTN, Hypercholesterolemia, [place], Psychiatric and Other (angioedema, diverticulitis)
ED Past Surgical History: Cardiac
Patient has exhibited threatening behavior?: No
Social History
Tobacco: Former smoker
Alcohol: Daily (2 glasses of wine per day)
Drug: None
Personal: Single
Living: alone
Employment: Employed
Family History
Family History: CAD
Review of Systems
Review of Systems
Allergies reviewed?: Yes
All Other Systems: ROS reviewed and negative except as documented in HPI and ROS
Constitutional: Reports no symptoms
EENT: Reports no symptoms
Respiratory: Reports no symptoms
Cardiac: Reports no symptoms
ABD/GI: Reports no symptoms
: Reports incontinence; Denies dysuria or bleeding
Musculoskeletal: Reports no symptoms
Skin: Reports no symptoms
Neurological: Reports other (Chronic balance issues, no worse than usual)
Endocrine: Reports no symptoms
Hematologic/Lymphatic: Reports no symptoms
Psychiatric: Reports no symptoms
Phy Exam
Physical Exam
Physical Exam:
Physical Exam
General: no apparent distress, not acutely ill
Neck: supple. no meningeal signs. normal psoterior pharynx
Heart: s1/s2 regular rate and rhythm
Lungs: no acute respiratory distress. clear bilaterally
Abdomen: normal bowel sounds. not tender. no CVAT
Neuro: alert and orientedx3. no focal neurological deficits. Cranial nerves equal and symmetric bilaterally. 5 out of 5 strength in all extremities. Walking around room with steady gait
Skin: no rash
Psychiatric: well kept. interactive and cooperative
Extremities: no edema. no calf tenderness. negative homans. good distal pulses
Course
Orders/Labs/Results
Orders:
Orders
06/18/24 18:58
Complete Blood Count/With Diff Urgent
Comprehensive Metabolic Panel Urgent
Manual Differential Urgent
06/18/24 22:26
Urinalysis Reflex To Culture Urgent
Date Specimen was Collected: 06/18/24
Time Specimen was Collected: 18:47
Urine Microscopic Reflex Cult Urgent
Abnormal Lab Results
06/18/24 06/18/24
18:58 22:26
RBC 4.48 L 10^6/uL
(4.70-6.10)
MCH 31.7 H pg
(27.0-31.0)
RDW 14.9 H %
(11.5-14.5)
Monocytes (Manual) 19 H %
(2-9)
Chloride 96 L mmol/L
(98-107)
Glucose 100 H mg/dl
(70-99)
Total Bilirubin 1.9 H mg/dl
(0.2-1.3)
Urine Ketones 3+ A
(Negative)
Ur Occult Blood Reflex 1+ A
(Negative)
Urine Bacteria (Reflex) Few A
(Negative)
Urine Glucose 4+ A
(Negative)
Urine Albumin (Reflex) 2+ A
(Neg - Trace)
06/18/24 18:58
06/18/24 18:58
Vital Signs
Initial and Last Documented VS:
Initial Vital Signs
Temp Pulse Resp BP Pulse Ox
98.5 F 86 16 144/75 97
06/18/24 18:42 06/18/24 18:42 06/18/24 18:42 06/18/24 18:42 06/18/24 18:42
Last Documented Vital Signs
Temp Pulse Resp BP Pulse Ox
98.5 F 91 16 143/87 98
06/18/24 18:42 06/18/24 21:38 06/18/24 21:38 06/18/24 21:38 06/18/24 21:38
MDM/Problems Addressed
Differential Diagnosis Includes:
Acute on chronic urinary incontinence, acute UTI, hyponatremia
MDM/Problems Addressed:
Patient complains of acute on chronic urinary incontinence
Chronic conditions affecting care:
Chronic urinary incontinence and UTIs
Acute Exacerbation and/or Progression of Chronic Illness:
Patient may have acute exacerbation of urinary incontinence
*Pulse Oximetry
Patient hypoxic: no
*EKG
Interpreted by ED Provider?: NA
*Software Installer Interpretation
Rate: Software Installer- N/A
*Critical Care Note
Total Time (30-74mins, 75-104mins- exclusive of procedures): Not Applicable
Data Reviewed
Review of Other/Old Records Reveals: Discharge Summary (Discharge summary reviewed from 2023 when patient was admitted for acute UTI and COVID)
Source: patient
Patient Management
Social determinants of health affecting care: Strong social support
Escalation/DeEscalation of care consider admission/obs:
Patient appears well. He is walking around without any sign of gait dysfunction. He has a normal neurological exam. He denies any worsening issues with his balance.
There is no sign of urinary tract infection on urinalysis.
ED Attending Note
-
Portions of this chart may have been created with voice recognition software.� Occasional wrong word or��sound alike� substitutions may have occurred due to the inherent limitations of voice recognition software.
Discharge Plan
Departure
Patient Disposition: Home (Routine Discharge)
Date of Disposition: 06/18/24
Time of Disposition: 22:55
Patient with high blood pressure during this ER visit?: Yes
Condition: Good
Covid-19: Not Applicable
Discharge Problem:
Urinary incontinence
Instructions: Urinary incontinence in males, BLOOD PRESSURE
Prescriptions:
No Action
terazosin 5 MG capsule
5 mg PO HS
aspirin 81 MG tablet,delayed release (DR/EC)
81 mg PO DAILY
rosuvastatin [Crestor] 40 MG tablet
40 mg PO HS
bupropion HCl 300 MG tablet extended release 24 hr
300 mg PO DAILY
ropinirole 1 MG tablet
3 mg PO HS
pantoprazole 40 MG tablet,delayed release (DR/EC)
40 mg PO DAILY
guaifenesin [Tussin] 100 mg/5 mL Liquid
200 mg PO BID PRN (Reason: cough)
azelastine 137 mcg (0.1 %) Aerosol,[place]
1 spray INTRANASAL BID
Patient Comments:
04/14/2023, patient states that sometimes they take this medication more than two times a day.
psyllium husk 3.4 gram/5.4 gram Powder
2 tsp PO TIDPRN PRN (Reason: constipation)
furosemide [Lasix] 20 MG tablet
40 mg PO DAILY
tramadol 50 mg Tablet
50 mg PO Q6HPRN PRN (Reason: mod sev pain) Qty: 15 0RF
spironolactone 25 mg Tablet
25 mg PO DAILY Qty: 30 2RF
tolterodine 2 mg Capsule,Extended Release 24hr
2 mg PO DAILY
trazodone 50 mg Tablet
50 mg PO HSPRN PRN (Reason: sleep)
cetirizine [Zyrtec] 10 mg Tablet
10 mg PO DAILYPRN PRN (Reason: allergies)
solifenacin 10 mg Tablet
10 mg PO DAILY
Jardiance 25 mg Tablet
12.5 mg PO DAILY
carvedilol 3.125 mg Tablet
3.125 mg PO BID Qty: 0 0RF
benzonatate 100 mg Capsule
100 mg PO TIDPRN PRN (Reason: Cough) Qty: 0 0RF
amoxicillin-pot clavulanate 875-125 mg Tablet
1 tab PO Q12 3 Days Qty: 6 0RF
Chloraseptic Sore Throat 6-10 mg Lozenge
1 caitlyn PO Q4HPRN PRN (Reason: sore throat) Qty: 0 0RF
alprazolam 0.25 MG tablet
0.25 mg PO Q8HPRN PRN (Reason: anxiety) Qty: 5 0RF
Referrals:
Ana María Newberry PA [Family Provider] -
Activity Restrictions/Additional Instructions:
Follow-up with your urologist as soon as possible.
Please return with any fever, vision changes, or concerns with new balance issues
Interventions
Interventions:
*Risk Screen - Suicide Last Done: 06/18/24 21:38
*General Assessment Last Done: 06/18/24 21:38
*Neglect/Abuse Screening Last Done: 06/18/24 21:38
ED- Fall Risk Assessment Last Done: 06/18/24 21:38
*ED COVID-19 Vaccine History Last Done: 06/18/24 21:38
*Nursing Disposition Last Done: 06/18/24 22:59
ED- Neurological Assessment Last Done: 06/18/24 21:38
ED-Male Genitourinary Assessment Last Done: 06/18/24 21:38
Discharge Date and Time
Discharge Date/Time: 06/18/24 23:00
Print Language: SWISS
== END 2024-06-18 23:00 | disposition home or self-care (01) ==
LOC: EMR 18:39
PROVIDERS: Emergency Medicine; EMERGENCY PHYSICIAN Emergency Medicine; FAMILY PHYSICIAN Physician Assistant
DX: R32 Unspecified urinary incontinence (principal); I11.0 Hypertensive heart disease with heart failure; I50.9 Heart failure, unspecified; Z87.891 Personal history of nicotine dependence
CPT/HCPCS: 99283; 80053; 81003; 81015; 85025

== ENCOUNTER 2024-06-21 15:09 | Emergency (ER) | payer MEDICARE, SELFPAY ==
[2024-06-21 15:31] VITALS: BP 124/72
--- NOTE | 2024-06-21 15:35 | ED.CVA ---
ED Provider Triage
<Giovana Lu PA-C - Last Filed: 06/21/24 15:38>
-
Patient seen by provider in Triage?: Seen in Triage
79-year-old male history of heart failure with reduced ejection fraction, CAD, hypertension,
Sent over after an abnormal CAT scan this morning. The CAT scan was ordered after the patient fell around 4 AM. Patient said he had eaten ice cream and got up quickly and turned around and then lost his balance when he got caught in a computer
cable and fell striking his nose. He did not lose consciousness. He was able to get himself up. He has a skin tear or some laceration on his left arm. This morning he went to his family doctor and was sent over for CAT scan. The CAT scan shows
a subtle area of hypodensity that could be an old infarct versus a subacute stroke patient was sent for evaluation/admission.
A medical screening examination has been initiated by a qualified medical provider. Based on the assessment performed at this time, it has been determined that an emergent medical condition may exist and the patient has been informed that further
medical evaluation and possible additional diagnostic testing may be needed.
HPI: This is a medical evaluation conducted in person to initiate diagnostic evaluation and provide initial therapeutics. Please see further documentation by the treating clinician.
GENERAL: Alert , in no apparent distress
ENT: Superficial abrasion to the nose
LUNGS: No acute respiratory distress
NEUROLOGICAL: Alert and oriented, cranial nerves appear intact, gross strength intact upper and lower extremities
SKIN: Skin intact. No visible changes.
MUSCULOSKELETAL: Moving extremities normally
PSYCH: Normal and appropriate interaction.
Patient is had multiple falls more recently including 1 this morning, sent for CAT scan and after the CAT scan was abnormal and they sent him over for evaluation. Patient has no focal neurofindings. Will start with screening labs, declined imaging
at this time, may need an MRI
History of Present Illness
<Giovana Lu PA-C - Last Filed: 06/21/24 15:38>
General
Chief Complaint: CVA/TIA Symptoms
Time Seen by Provider: 06/21/24 15:55
<Dariel Andrews MD - Last Filed: 06/21/24 16:55>
Onset of Stroke Symptoms
Onset of symptoms known: No
Time pt last seen normal is known: No
History of Present Illness
History of Present Illness:
Patient is a 79-year-old male with history of hypertension, hyperlipidemia, CAD with prior VT presenting to the emergency department with abnormal CT scan of his head. He had a mechanical fall this morning where he turned too fast and hit his head.
He is not on a blood thinner. He went to his PCP who ordered a CT scan. The CT scan showed other chronic or subacute infarct and he was sent to the emergency department for further evaluation. He denies any word-finding difficulties dysarthria
vision changes headache numbness tingling or weakness. He states that he has had 2 falls in the past few weeks which have been all mechanical. He has never lost consciousness. He states that he is at his baseline right now. He does state that he
has seen his PCP who also started physical therapy to help with his fall. He does feel much stronger and feels his falls have been less frequent. He does feel comfortable and safe living at home by himself.
Past History
<Giovana Lu PA-C - Last Filed: 06/21/24 15:38>
Past History
ED Past Medical History: CAD, Cancer (Prostate), CHF, GERD, HTN, Hypercholesterolemia, [place], Psychiatric and Other (angioedema, diverticulitis)
ED Past Surgical History: Cardiac
Patient has exhibited threatening behavior?: No
Social History
Tobacco: Former smoker
Alcohol: Daily (2 glasses of wine per day)
Drug: None
Personal: Single
Living: alone
Employment: Employed
Family History
Family History: CAD
Phy Exam
<Dariel Andrews MD - Last Filed: 06/21/24 16:55>
Physical Exam
Physical Exam:
GENERAL: in no acute distress
HEENT: normocephalic, extraocular movements intact, moist oral mucosa
NECK: normal inspection
RESPIRATORY: no respiratory distress, clear to auscultation bilaterally
CARDIOVASCULAR: regular rate and rhythm
ABDOMEN/: soft, non-distended, non-tender to palpation, no rebound or guarding
EXTREMITIES: non-tender, no edema/swelling
NEUROLOGIC: awake and alert, moves all extremities, equal strength in upper and lower extremities, no sensory deficits, visual bennett intact, extraocular muscles intact, no facial paralysis, no dysarthria, no dysphasia
SKIN: warm
Course
<Giovana Lu PA-C - Last Filed: 06/21/24 15:38>
Orders/Labs/Results
Orders:
Orders
06/21/24 15:37
Electrocardiogram (*1) Urgent
Reason for Study: TIA/Stroke
EKG- Treatment ONCE
06/21/24 15:37
06/21/24 15:37
Vital Signs
Initial and Last Documented VS:
Initial Vital Signs
Temp Pulse Resp BP Pulse Ox
97.5 F 82 18 124/72 100
06/21/24 15:31 06/21/24 15:31 06/21/24 15:31 06/21/24 15:31 06/21/24 15:31
Last Documented Vital Signs
Temp Pulse Resp BP Pulse Ox
97.5 F 82 18 124/72 100
06/21/24 15:31 06/21/24 15:31 06/21/24 15:31 06/21/24 15:31 06/21/24 15:31
<Dariel Andrews MD - Last Filed: 06/21/24 16:55>
Orders/Labs/Results
Orders:
Orders
06/21/24 15:37
Electrocardiogram (*1) Urgent
Reason for Study: TIA/Stroke
EKG- Treatment ONCE
06/21/24 15:37
06/21/24 15:37
Vital Signs
Initial and Last Documented VS:
Initial Vital Signs
Temp Pulse Resp BP Pulse Ox
97.5 F 82 18 124/72 100
06/21/24 15:31 06/21/24 15:31 06/21/24 15:31 06/21/24 15:31 06/21/24 15:31
Last Documented Vital Signs
Temp Pulse Resp BP Pulse Ox
97.5 F 82 18 124/72 100
06/21/24 15:31 06/21/24 15:31 06/21/24 15:31 06/21/24 15:31 06/21/24 15:31
<Dariel Andrews MD - Last Filed: 06/21/24 16:55>
MDM/Problems Addressed
Differential Diagnosis Includes:
79-year-old man presenting to the emergency department with an abnormal CT scan. Vital signs are unremarkable and exam is reassuring. I did review patient's CT scan which is noted below. Given the chronic versus possible subacute I did discuss
with neurology if admission would be beneficial. Neurology evaluated patient at bedside and recommended outpatient follow-up. He has had carotid imaging done by his stand grinder so neurology recommended continuing the aspirin and Crestor. Blood
work was ordered from triage however after discussion with neurology we will discontinue. All questions answered. Patient safe for discharge at this time.
CT HEAD: There is a focal area of decreased density and volume loss in the right posterolateral parietal lobe which appears new from prior CT examination November 03, 2023. Morphologically, this is most likely a region of old infarction, although
subacute infarction is also possible.
<Dariel Andrews MD - Last Filed: 06/21/24 16:55>
*Critical Care Note
Total Time (30-74mins, 75-104mins- exclusive of procedures): Not Applicable
ED Attending Note
<Giovana Lu PA-C - Last Filed: 06/21/24 15:38>
-
Portions of this chart may have been created with voice recognition software.� Occasional wrong word or��sound alike� substitutions may have occurred due to the inherent limitations of voice recognition software.
Discharge Plan
Departure
Patient Disposition: Home (Routine Discharge)
Date of Disposition: 06/21/24
Time of Disposition: 16:50
Patient with high blood pressure during this ER visit?: No
Discharge Problem:
CVA (cerebral vascular accident)
Instructions: Preventing falls - ED discharge instructions
Prescriptions:
No Action
terazosin 5 MG capsule
5 mg PO HS
aspirin 81 MG tablet,delayed release (DR/EC)
81 mg PO DAILY
rosuvastatin [Crestor] 40 MG tablet
40 mg PO HS
bupropion HCl 300 MG tablet extended release 24 hr
300 mg PO DAILY
ropinirole 1 MG tablet
3 mg PO HS
pantoprazole 40 MG tablet,delayed release (DR/EC)
40 mg PO DAILY
guaifenesin [Tussin] 100 mg/5 mL Liquid
200 mg PO BID PRN (Reason: cough)
azelastine 137 mcg (0.1 %) Aerosol,[place]
1 spray INTRANASAL BID
Patient Comments:
04/14/2023, patient states that sometimes they take this medication more than two times a day.
psyllium husk 3.4 gram/5.4 gram Powder
2 tsp PO TIDPRN PRN (Reason: constipation)
furosemide [Lasix] 20 MG tablet
40 mg PO DAILY
tramadol 50 mg Tablet
50 mg PO Q6HPRN PRN (Reason: mod sev pain) Qty: 15 0RF
spironolactone 25 mg Tablet
25 mg PO DAILY Qty: 30 2RF
tolterodine 2 mg Capsule,Extended Release 24hr
2 mg PO DAILY
trazodone 50 mg Tablet
50 mg PO HSPRN PRN (Reason: sleep)
cetirizine [Zyrtec] 10 mg Tablet
10 mg PO DAILYPRN PRN (Reason: allergies)
solifenacin 10 mg Tablet
10 mg PO DAILY
Jardiance 25 mg Tablet
12.5 mg PO DAILY
carvedilol 3.125 mg Tablet
3.125 mg PO BID Qty: 0 0RF
benzonatate 100 mg Capsule
100 mg PO TIDPRN PRN (Reason: Cough) Qty: 0 0RF
amoxicillin-pot clavulanate 875-125 mg Tablet
1 tab PO Q12 3 Days Qty: 6 0RF
Chloraseptic Sore Throat 6-10 mg Lozenge
1 caitlyn PO Q4HPRN PRN (Reason: sore throat) Qty: 0 0RF
alprazolam 0.25 MG tablet
0.25 mg PO Q8HPRN PRN (Reason: anxiety) Qty: 5 0RF
Referrals:
Rishi Phelps MD [Active] -
Activity Restrictions/Additional Instructions:
You were seen in the Emergency Department today for an old stroke seen on CT scan. Please continue the aspirin and Crestor. I did give you the neurologist to follow-up with.
We would like for you to follow up with your primary care physician for further evaluation. If you experience fever, worsening of your symptoms, or develop any other new or concerning symptoms, please return to the Emergency Department immediately.
Please see the attached sheet for additional information.
Interventions
Interventions:
*Risk Screen - Suicide Last Done: 06/21/24 15:31
*Neglect/Abuse Screening Last Done: 06/21/24 15:31
*ED COVID-19 Vaccine History Last Done: 06/21/24 15:39
Discharge Date and Time
Print Language: KINYARWANDA
[2024-06-21 17:08] VITALS: BP 129/83
--- NOTE | 2024-06-21 17:10 | CON.NEURO ---
Neuro Assessment/Plan
Assessment
Head CT today, imgs rev'd, agree there is a wedge shaped hypodensity in the right posterior parietal lobe, new since prior imaging 10/2023. chronic Left posterior medial parietal infarct, appears stable.
Agree that the shape appears as a stroke, at least sub-acute or early chronic
this matches patient's exam of subtle left sided weakness, which is asymptomatic
I do not believe that an MRI to clarify the timing of the stroke will change anything
As he had carotid imaging within the past year, it is not necessary to repeat
patient and I both agree that he can be discharged home, continue ASA 81, Crestor 40, and f/u with his babbitt spinner Dr Mcguire about any further a-fib screening
Plan
patient and I both agree that he can be discharged home, f/u with his babbitt spinner Dr Mcguire, continue ASA 81, Crestor 40
Consultation
Order
Date of Consultation: 06/21/24
Requesting Provider: Dariel Andrews
Reason for Consult: Stroke
Subjective/Objective
Subjective Data
Date of Service: June 21, 2024
from H&P:
79-year-old male history of heart failure with reduced ejection fraction, CAD, hypertension,
Sent over after an abnormal CAT scan this morning. The CAT scan was ordered after the patient fell around 4 AM. Patient said he had eaten ice cream and got up quickly and turned around and then lost his balance when he got caught in a computer
cable and fell striking his nose. He did not lose consciousness. He was able to get himself up. He has a skin tear or some laceration on his left arm. This morning he went to his family doctor and was sent over for CAT scan. The CAT scan shows
a subtle area of hypodensity that could be an old infarct versus a subacute stroke patient was sent for evaluation/admission.
when I saw him, he denies any focal neuro symptoms, no weakness, no numbness. He has close follow up with his babbitt spinner Dr Mcguire, and got a carotid ultrasound within the past year which he states was normal.
Objective Data
Vital Signs
Temp Pulse Resp BP Pulse Ox
36.4 C 76 18 129/83 98
06/21/24 15:31 06/21/24 17:08 06/21/24 17:08 06/21/24 17:08 06/21/24 17:08
Lab Results
06/21/24 15:37
06/21/24 15:37
PT Cancelled 06/21/24 15:37
INR Cancelled 06/21/24 15:37
APTT Cancelled 06/21/24 15:37
Sodium Cancelled 06/21/24 15:37
Potassium Cancelled 06/21/24 15:37
BUN Cancelled 06/21/24 15:37
Glucose Cancelled 06/21/24 15:37
Calcium Cancelled 06/21/24 15:37
Patient Allergies
lisinopril Allergy (Verified 06/21/24 15:39)
Angioedema
pollen extracts Allergy (Verified 06/21/24 15:39)
nasal symptoms
Physical Exam
-
AAOx3, speech clear, language intact
VFF, EOMI, face symmetric
full strength b/l UE/LE on MMT, with LEFT pronator drift, left arm fixation
sensation intact to touch/temp
DTR 1+ symm
Finger to nose with mild distal dysmetria
Medications
-
Home Medications
�Medication �Instructions �Recorded
aspirin 81 mg tablet,delayed 81 mg PO DAILY Blood clot 12/15/09
release prevention/tx
terazosin 5 mg capsule 5 mg PO HS Blood pressure 12/15/09
rosuvastatin 40 mg tablet (Crestor) 40 mg PO HS High cholesterol 10/20/13
bupropion HCl 300 mg 24 hr tablet, 300 mg PO DAILY Mental Health 08/05/19
extended release
pantoprazole 40 mg tablet,delayed 40 mg PO DAILY Gastrointestinal 10/31/19
release issue
ropinirole 1 mg tablet 3 mg PO HS Movement Disorder 10/31/19
azelastine 137 mcg (0.1 %) nasal 1 spray intranasal BID Allergies 04/14/23
spray
furosemide 20 mg tablet (Lasix) 40 mg PO DAILY Fluid 04/14/23
Retention/Swelling
guaifenesin 100 mg/5 mL oral 200 mg PO BID PRN cough 04/14/23
liquid (Tussin)
psyllium husk 3.4 gram/5.4 gram 2 tsp PO TIDPRN PRN constipation 04/14/23
oral powder
spironolactone 25 mg tablet 25 mg PO DAILY HTN #30 tabs 04/19/23
tramadol 50 mg tablet 50 mg PO Q6HPRN PRN mod sev pain 04/19/23
#15 tabs
cetirizine 10 mg tablet (Zyrtec) 10 mg PO DAILYPRN PRN allergies 01/16/24
empagliflozin 25 mg tablet 12.5 mg PO DAILY 01/16/24
(Jardiance)
solifenacin 10 mg tablet 10 mg PO DAILY 01/16/24
tolterodine 2 mg capsule,extended 2 mg PO DAILY 01/16/24
release 24 hr
trazodone 50 mg tablet 50 mg PO HSPRN PRN sleep 01/16/24
alprazolam 0.25 mg tablet 0.25 mg PO Q8HPRN PRN anxiety #5 01/20/24
tabs
amoxicillin 875 mg-potassium 1 tab PO Q12 3 days #6 tabs 01/20/24
clavulanate 125 mg tablet
benzocaine 6 mg-menthol 10 mg 1 caitlyn PO Q4HPRN PRN sore throat #0 01/20/24
lozenges (Chloraseptic Sore Throat) ea
benzonatate 100 mg capsule 100 mg PO TIDPRN PRN Cough #0 caps 01/20/24
carvedilol 3.125 mg tablet 3.125 mg PO BID #0 tabs 01/20/24
== END 2024-06-21 17:14 | disposition home or self-care (01) ==
LOC: EMR 15:09
PROVIDERS: EMERGENCY PHYSICIAN Student in an Organized Health Care Education/Training Program; FAMILY PHYSICIAN Physician Assistant; OTHER PHYSICIAN Psychiatry & Neurology Clinical Neurophysiology
DX: I63.9 Cerebral infarction, unspecified (principal); S00.31XA Abrasion of nose, initial encounter; W18.09XA Striking against other object with subsequent fall, initial encounter; I11.0 Hypertensive heart disease with heart failure; I50.22 Chronic systolic (congestive) heart failure; E78.00 Pure hypercholesterolemia, unspecified; I25.10 Atherosclerotic heart disease of native coronary artery without angina pectoris; I25.2 Old myocardial infarction; K21.9 Gastro-esophageal reflux disease without esophagitis; Z87.891 Personal history of nicotine dependence; Z79.84 Long term (current) use of oral hypoglycemic drugs
CPT/HCPCS: 99284; 93005

== ENCOUNTER → 2024-08-03 10:02 | Outpatient (REF) | payer MEDICARE, SELFPAY ==
[2024-08-03 11:33] LABS: VerifyNow Aspirin 572 ARU
[2024-08-03 11:52] LABS: HDL Cholesterol 71 mg/dl; LDL Cholesterol, Calculated 93 mg/dl; Total Cholesterol 196 mg/dl (50-199); Triglyceride 160 mg/dl (10-149); Very Low Density Lipoprotein 32 mg/dl (0-30)
--- NOTE | 2024-08-03 12:59 | EEG.RPT ---
Electroencephalogram Report
Recording
Date of EE08/03/24
Type of EEG: Routine
Length of EEG recordin minutes
Done with Video Recording: Yes
Patient Status: Outpatient
Recording Conditions: Awake, Drowsy and Asleep
Hyperventilation Performed: No
Photic Stimulation Performed: Yes
Report
LESS THAN 1 HOUR EEG REPORT
LESS THAN 1 HOUR EEG INTERPRETATION:
Unremarkable EEG for age
CLINICAL CORRELATION:
A normal EEG does not rule out a diagnosis of epilepsy. If clinical suspicion for seizure persists, a prolonged recording may be warranted.
Clinical correlation is advised.
METHODS:
A 21 channel digitized electroencephalogram (EEG) was performed using the 10/20 international system of electrode placement and one-lead of ECG recorded. Video was recorded. Persyst quantitative EEG analysis was performed.
ELECTROENCEPHALOGRAPHER IMPRESSION(S):
Quality of study
Good
Background
There was an unremarkable anterior-posterior voltage gradient of alpha frequency.
With eye opening the background activity changed to a low voltage mixture of frequencies.
There were no significant asymmetries of background activity noted.
Sleep
Drowsiness present
Stage I present
Stage 2 present
Hyperventilation
Produced symmetric amplitude increase and mild slowing appropriate to age
Photic Stimulation
Produced driving symmetrically in most flash frequencies
ECG
Normal sinus rhythm
[2024-08-03 13:07] LABS: Glycohemoglobin (HgbA1c) 6.1 % (4.0-5.6)
== END ==
LOC: EEG 10:02
PROVIDERS: ATTENDING PHYSICIAN Nurse Practitioner Adult Health; FAMILY PHYSICIAN Physician Assistant
DX: R40.20 Unspecified coma (principal); I63.9 Cerebral infarction, unspecified; E78.5 Hyperlipidemia, unspecified; R73.09 Other abnormal glucose
CPT/HCPCS: 36415; 80061; 83036; 85576; 95813

== ENCOUNTER 2024-09-03 08:28 | Emergency (ER) | payer MEDICARE, SELFPAY ==
[2024-09-03 08:35] VITALS: BP 136/86
[2024-09-03 09:54] VITALS: BMI 31.5
[2024-09-03 10:19] LABS: Hematocrit 48.2 % (39.0-52.0); Hemoglobin 16.3 g/dL (13.0-18.0); Mean Corp Hgb Conc. 33.8 g/dL (33.0-37.0); Mean Corpuscular Hgb 30.6 pg (27.0-31.0); Mean Corpuscular Volume 90.4 fL (80.0-94.0); Mean Platelet Volume 10.9 fL (7.4-10.4); Platelet Count 118 10^3/uL (130-400); Red Blood Cell Count 5.33 10^6/uL (4.70-6.10); Red Cell Dist. Width 13.5 % (11.5-14.5); White Blood Cell Count 11.6 10^3/uL (4.8-10.8)
[2024-09-03 10:26] LABS: ALT (SGPT) 24 U/L (0-50); AST (SGOT) 19 U/L (17-59); Albumin 4.3 g/dl (3.5-5.0); Alkaline Phosphatase 45 U/L (38-126); Blood Urea Nitrogen 17 mg/dl (9-20); Calcium 9.4 mg/dl (8.4-10.2); Carbon Dioxide 30 mmol/L (22-30); Chloride 103 mmol/L (98-107); Estimated Creatinine Clearance 80 ml/min; Glucose 159 mg/dl (70-99); Potassium 4.1 mmol/L (3.5-5.1); Sodium 140 mmol/L (135-145); Total Bilirubin 1.1 mg/dl (0.2-1.3); Total Protein 6.9 g/dl (6.3-8.2); eGFR > 60.00
[2024-09-03 10:29] LABS: Urine Albumin Negative (Neg - Trace); Urine Bilirubin Negative (Negative); Urine Character Clear (Clear); Urine Color Yellow; Urine Glucose 4+ (Negative); Urine Ketone Negative (Negative); Urine Leukocyte Negative (Negative); Urine Nitrite Negative (Negative); Urine Occult Blood Negative (Negative); Urine Urobilinogen Negative (Neg - 1+)
[2024-09-03 10:36] LABS: Atypical Lymphocytes 11 %; Band Neutrophils 3 % (0-3); Lymphocytes 16 % (20-51); Monocytes 21 % (2-9); Segmented Neutrophils 49 % (42-75)
[2024-09-03 10:37] LABS: Normal RBC Morphology Yes; Platelets Checked Yes
[2024-09-03 10:38] LABS: Total Cells Counted 100
[2024-09-03 11:15] VITALS: BP 132/78
--- NOTE | 2024-09-03 11:55 | ED.GENMED ---
History of Present Illness
General
Chief Complaint: Psychiatric Problem
Source: patient
Exam Limitations: none
Time Seen by Provider: 09/03/24 09:54
History of Present Illness
History of Present Illness:
79-year-old male who presents with a variety of complaints that have been ongoing for some time. Patient states he has not been able to sleep. Since he is not been able to sleep sometimes he will get frustrated with tasks and get angry. He states
that he only gives himself 5 minutes to complete something and when is not working he just moved on. States he has been having a little bit of anxiety with regard to whether he should retire or work and some other things going on in his life such
as moving. He denies chest pain or shortness of breath. No fevers. Patient denies headaches. The patient states he was on trazodone but that it gave him nightmares so he stopped taking it. He occasionally takes Xanax. He was given a therapist
that he has used in the past but he states he has failed to follow-up. Patient admits that he has been seen by neurology in the past due to balance issues and had an EEG and imaging.
Past History
Past History
ED Past Medical History: CAD, Cancer (Prostate), CHF, GERD, HTN, Hypercholesterolemia, [place], Psychiatric and Other (angioedema, diverticulitis)
ED Past Surgical History: Cardiac
Patient has exhibited threatening behavior?: No
Social History
Tobacco: Former smoker
Alcohol: Daily (2 glasses of wine per day)
Drug: None
Personal: Single
Living: alone
Employment: Employed
Family History
Family History: CAD
Phy Exam
Physical Exam
Physical Exam:
CONSTITUTIONAL Patient alert and oriented to person, place and time. Well-appearing. Vital signs reviewed.
HEAD atraumatic, normocephalic.
EYES eyelids normal to inspection, Extraocular muscles intact, Conjunctiva normal, Sclera normal.
NECK normal range of motion, Trachea midline, no jugular venous distention.
RESPIRATORY CHEST No respiratory distress noted, Chest expansion equal, Bilateral breath sounds clear.
CARDIOVASCULAR regular rate and rhythm, Heart sounds normal.
ABDOMEN abdomen nontender, Bowel sounds normal. No distention.
BACK normal inspection, no obvious deformities
UPPER EXTREMITY range of motion normal, Motor strength normal, no cyanosis, no edema.
LOWER EXTREMITY range of motion normal, Motor strength normal, no cyanosis, no edema.
NEURO Speech normal, No focal motor deficits, [place] coma scale 15, Memory normal, Cranial Nerves intact to screening exam.
SKIN skin warm, dry, and normal in color.
Course
Orders/Labs/Results
Orders:
Orders
09/03/24 10:06
Complete Blood Count/With Diff Urgent
Comprehensive Metabolic Panel Urgent
Manual Differential Urgent
Urinalysis Reflex To Culture Urgent
Date Specimen was Collected: 09/03/24
Time Specimen was Collected: 09:59
Abnormal Lab Results
09/03/24
10:06
WBC 11.6 H 10^3/uL
(4.8-10.8)
Plt Count 118 L 10^3/uL
(130-400)
MPV 10.9 H fL
(7.4-10.4)
Lymphocytes (Manual) 16 L %
(20-51)
Monocytes (Manual) 21 H %
(2-9)
Glucose 159 H mg/dl
(70-99)
Urine Glucose 4+ A
(Negative)
09/03/24 10:06
09/03/24 10:06
Vital Signs
Initial and Last Documented VS:
Initial Vital Signs
Temp Resp Pulse Ox
97.9 F 18 98
09/03/24 08:29 09/03/24 08:29 09/03/24 08:29
Last Documented Vital Signs
Temp Pulse Resp BP Pulse Ox
97.9 F 58 16 132/78 98
09/03/24 08:29 09/03/24 11:15 09/03/24 11:15 09/03/24 11:15 09/03/24 11:15
MDM/Problems Addressed
Differential Diagnosis Includes:
[place] imbalance, metabolic dysfunction, anxiety, insomnia
MDM/Problems Addressed:
Insomnia, anxiety
*Pulse Oximetry
Patient hypoxic: no
*[place] Interpretation
Rate: normal
Interpretation: normal
Rhythm: sinus
*Critical Care Note
Total Time (30-74mins, 75-104mins- exclusive of procedures): Not Applicable
Data Reviewed
Source: patient
Further Testing Considered But Not Given:
Consider head CT but no focal findings.
Patient Management
Escalation/DeEscalation of care consider admission/obs:
Patient appears well. Already does have Xanax at home. I will refer him back to his PCP for further care and management of his insomnia. Will also refer to crisis. Patient states that he was to follow-up with a therapist which I think should be
reasonable
ED Attending Note
-
Portions of this chart may have been created with voice recognition software.� Occasional wrong word or��sound alike� substitutions may have occurred due to the inherent limitations of voice recognition software.
Discharge Plan
Departure
Patient Disposition: Home (Routine Discharge)
Date of Disposition: 09/03/24
Time of Disposition: 11:59
Patient with high blood pressure during this ER visit?: No
Discharge Problem:
Insomnia
Instructions: Insomnia, Generalized Anxiety Disorder (DC)
Prescriptions:
No Action
terazosin 5 MG capsule
5 mg PO HS
aspirin 81 MG tablet,delayed release (DR/EC)
81 mg PO DAILY
rosuvastatin [Crestor] 40 MG tablet
40 mg PO HS
bupropion HCl 300 MG tablet extended release 24 hr
300 mg PO DAILY
ropinirole 1 MG tablet
3 mg PO HS
pantoprazole 40 MG tablet,delayed release (DR/EC)
40 mg PO DAILY
guaifenesin [Tussin] 100 mg/5 mL Liquid
200 mg PO BID PRN (Reason: cough)
azelastine 137 mcg (0.1 %) Aerosol,[place]
1 spray INTRANASAL BID
Patient Comments:
04/14/2023, patient states that sometimes they take this medication more than two times a day.
psyllium husk 3.4 gram/5.4 gram Powder
2 tsp PO TIDPRN PRN (Reason: constipation)
furosemide [Lasix] 20 MG tablet
40 mg PO DAILY
tramadol 50 mg Tablet
50 mg PO Q6HPRN PRN (Reason: mod sev pain) Qty: 15 0RF
spironolactone 25 mg Tablet
25 mg PO DAILY Qty: 30 2RF
tolterodine 2 mg Capsule,Extended Release 24hr
2 mg PO DAILY
trazodone 50 mg Tablet
50 mg PO HSPRN PRN (Reason: sleep)
cetirizine [Zyrtec] 10 mg Tablet
10 mg PO DAILYPRN PRN (Reason: allergies)
solifenacin 10 mg Tablet
10 mg PO DAILY
Jardiance 25 mg Tablet
12.5 mg PO DAILY
carvedilol 3.125 mg Tablet
3.125 mg PO BID Qty: 0 0RF
benzonatate 100 mg Capsule
100 mg PO TIDPRN PRN (Reason: Cough) Qty: 0 0RF
amoxicillin-pot clavulanate 875-125 mg Tablet
1 tab PO Q12 3 Days Qty: 6 0RF
Chloraseptic Sore Throat 6-10 mg Lozenge
1 caitlyn PO Q4HPRN PRN (Reason: sore throat) Qty: 0 0RF
alprazolam 0.25 MG tablet
0.25 mg PO Q8HPRN PRN (Reason: anxiety) Qty: 5 0RF
Referrals:
Ana María Newberry PA [Family Provider] -
Activity Restrictions/Additional Instructions:
Consider following up with your therapist as planned. In addition, please follow-up with your primary care physician. Return immediately for chest pain, shortness of breath, abdominal pain, weakness of any kind or any other concerns.
Interventions
Interventions:
*Risk Screen - Suicide Last Done: 09/03/24 08:29
*General Assessment Last Done: 09/03/24 09:54
*Neglect/Abuse Screening Last Done: 09/03/24 09:54
*ED- Fall Risk Assessment Last Done: 09/03/24 09:54
*ED COVID-19 Vaccine History Last Done: 09/03/24 09:54
ED-Psychological Assessment Last Done: 09/03/24 09:54
Discharge Date and Time
Print Language: CENTRAL AFRICAN
== END 2024-09-03 12:25 | disposition home or self-care (01) ==
LOC: EMR 08:28
PROVIDERS: EMERGENCY PHYSICIAN Emergency Medicine; FAMILY PHYSICIAN Physician Assistant
DX: G47.00 Insomnia, unspecified (principal); I25.10 Atherosclerotic heart disease of native coronary artery without angina pectoris; I11.0 Hypertensive heart disease with heart failure; I50.9 Heart failure, unspecified; K21.9 Gastro-esophageal reflux disease without esophagitis; E78.00 Pure hypercholesterolemia, unspecified; I25.2 Old myocardial infarction; F41.9 Anxiety disorder, unspecified; Z82.49 Family history of ischemic heart disease and other diseases of the circulatory system; Z87.891 Personal history of nicotine dependence
CPT/HCPCS: 99283; 80053; 81003; 85025

== ENCOUNTER → 2024-09-04 07:35 | Outpatient (REF) | payer MEDICARE, SELFPAY ==
[2024-09-04 09:47] LABS: Urine Albumin Negative (Neg - Trace); Urine Bilirubin Negative (Negative); Urine Character Clear (Clear); Urine Color Yellow; Urine Glucose 4+ (Negative); Urine Ketone Negative (Negative); Urine Leukocyte Negative (Negative); Urine Nitrite Negative (Negative); Urine Occult Blood Negative (Negative); Urine Specific Gravity 1.015 (<1.030); Urine Urobilinogen Negative (Neg - 1+)
[2024-09-04 15:02] LABS: PSA, Total - Diagnostic 3.83 ng/ml (0.0-4.0)
== END ==
LOC: REG 07:35
PROVIDERS: ATTENDING PHYSICIAN Specialist
DX: C61 Malignant neoplasm of prostate (principal); N30.20 Other chronic cystitis without hematuria
CPT/HCPCS: 36415; 81003; 84153; 87086

== ENCOUNTER 2024-09-16 14:05 | Emergency (ER) | payer MEDICARE, SELFPAY ==
[2024-09-16 14:07] VITALS: BP 155/89
[2024-09-16 14:47] VITALS: BP 153/111
[2024-09-16 14:52] VITALS: BMI 30.4
--- NOTE | 2024-09-16 16:08 | ED.GENMED ---
History of Present Illness
General
Chief Complaint: Anxiety
Source: patient
Exam Limitations: none
Time Seen by Provider: 09/16/24 14:50
Nursing documentation reviewed up to this point in time: agreed with
History of Present Illness
History of Present Illness:
79 y/o M with h/o CHF on lasix, CAD,
stroke - subacute/chronic on imaging
Past History
Past History
ED Past Medical History: CAD, Cancer (Prostate), CHF, GERD, HTN, Hypercholesterolemia, [place], Psychiatric and Other (angioedema, diverticulitis)
ED Past Surgical History: Cardiac
Patient has exhibited threatening behavior?: No
Social History
Tobacco: Former smoker
Alcohol: Daily (2 glasses of wine per day)
Drug: None
Personal: Single
Living: alone
Employment: Employed
Family History
Family History: CAD
Course
Orders/Labs/Results
Orders:
Orders
09/16/24 16:05
PT Consult [Pt Eval And Treat] Urgent
Activity Level: Ambulate
09/16/24 16:18
Case Management Consult ONCE
Case Management Consult: VN/Home Care
Vital Signs
Blood pressure: 159/98
Initial and Last Documented VS:
Initial Vital Signs
Temp Pulse Resp BP Pulse Ox
37.0 C 79 16 155/89 96
09/16/24 14:07 09/16/24 14:07 09/16/24 14:07 09/16/24 14:07 09/16/24 14:07
Last Documented Vital Signs
Temp Pulse Resp BP Pulse Ox
37.1 C 69 18 153/129 96
09/16/24 14:47 09/16/24 16:58 09/16/24 16:58 09/16/24 16:58 09/16/24 16:58
MDM/Problems Addressed
MDM/Problems Addressed:
79-year-old male with a history of CAD, hypertension, ex-smoker, pretty severe anxiety which is been ongoing for the last year or so. It seems to be getting worse, he was initially attributing it to GERD symptoms that would keep him up at night and
require him to drink water to help with symptoms. He seems to have gotten that under control but now really cannot stay asleep longer than an hour. He feels pretty severe anxiety when he is walking around because he thinks he is going to fall.
This is because he has fallen about 6 times in the last couple of months. He has been evaluated here and had diagnosis of a likely chronic stroke he has seen neurology as an outpatient as recently as 2 weeks ago and is scheduled for MRIs in 3 days
of his brain and cervical spine I believe. He is ambulatory and can drive but he says he feels like he is going to fall. He has not tried using a walker because he does not think he needs 1. He was in PT and it was helping but that was
discontinued months ago. He never used an assistive device before. Seems as if all of the symptoms are quite chronic, I am not sure exactly what brought him to the ER today when I ask him directly he does not seem to give me a new symptom that is
bothering him. It seems to be ongoing. He had screening labs 2 weeks ago which were unremarkable. Given his recent neuroimaging and future imaging I did not feel it was necessary to repeat that. Patient was able to get up and walk, he almost has
like a cogwheel type gait slow but is very subtle and he was not unbalanced enough when he is walking slowly I believe he will not fall. Unfortunately due to the time of day I was unable to get a formal PT consult but we were able to give him a
walker and he felt much better.
For now I did talk with case management about putting in a consult for home care and I wrote a prescription for PT that he can take for outpatient PT eval's.
ED Attending Note
-
Portions of this chart may have been created with voice recognition software.� Occasional wrong word or��sound alike� substitutions may have occurred due to the inherent limitations of voice recognition software.
Discharge Plan
Departure
Patient Disposition: Home (Routine Discharge)
Date of Disposition: 09/16/24
Time of Disposition: 16:50
Patient with high blood pressure during this ER visit?: Yes
Condition: Fair
Discharge Problem:
Neurologic gait dysfunction, Falls, Anxiety
Instructions: Anxiety, Adult (DC), Preventing falls - ED discharge instructions
Prescriptions:
No Action
terazosin 5 MG capsule
5 mg PO HS
aspirin 81 MG tablet,delayed release (DR/EC)
81 mg PO DAILY
rosuvastatin [Crestor] 40 MG tablet
40 mg PO HS
bupropion HCl 300 MG tablet extended release 24 hr
300 mg PO DAILY
ropinirole 1 MG tablet
3 mg PO HS
pantoprazole 40 MG tablet,delayed release (DR/EC)
40 mg PO DAILY
guaifenesin [Tussin] 100 mg/5 mL Liquid
200 mg PO BID PRN (Reason: cough)
azelastine 137 mcg (0.1 %) Aerosol,[place]
1 spray INTRANASAL BID
Patient Comments:
04/14/2023, patient states that sometimes they take this medication more than two times a day.
psyllium husk 3.4 gram/5.4 gram Powder
2 tsp PO TIDPRN PRN (Reason: constipation)
furosemide [Lasix] 20 MG tablet
40 mg PO DAILY
tramadol 50 mg Tablet
50 mg PO Q6HPRN PRN (Reason: mod sev pain) Qty: 15 0RF
spironolactone 25 mg Tablet
25 mg PO DAILY Qty: 30 2RF
tolterodine 2 mg Capsule,Extended Release 24hr
2 mg PO DAILY
trazodone 50 mg Tablet
50 mg PO HSPRN PRN (Reason: sleep)
cetirizine [Zyrtec] 10 mg Tablet
10 mg PO DAILYPRN PRN (Reason: allergies)
solifenacin 10 mg Tablet
10 mg PO DAILY
Jardiance 25 mg Tablet
12.5 mg PO DAILY
carvedilol 3.125 mg Tablet
3.125 mg PO BID Qty: 0 0RF
benzonatate 100 mg Capsule
100 mg PO TIDPRN PRN (Reason: Cough) Qty: 0 0RF
amoxicillin-pot clavulanate 875-125 mg Tablet
1 tab PO Q12 3 Days Qty: 6 0RF
Chloraseptic Sore Throat 6-10 mg Lozenge
1 caitlyn PO Q4HPRN PRN (Reason: sore throat) Qty: 0 0RF
alprazolam 0.25 MG tablet
0.25 mg PO Q8HPRN PRN (Reason: anxiety) Qty: 5 0RF
Referrals:
Ana María Newberry PA [Family Provider, Family Practice] - Follow up in 2-3 days
Activity Restrictions/Additional Instructions:
I placed a case management consult regarding your anxiety and your frequent falls to see if they could help arrange for some home care. Also I wrote you an outpatient physical therapy evaluation and treatment prescription which you can obtain as an
outpatient. Asked the classification case manager when they speak with you, they should call either tomorrow or Tuesday.
For now use the walker when you are walking on flat surfaces, when you are doing the stairs you should consider going on your bottom to avoid falling. Continue your anxiety medication as prescribed. Please call your family doctor regarding other
treatments for anxiety and sleep disorder. Have your MRIs this week
Interventions
Interventions:
*Risk Screen - Suicide Last Done: 09/16/24 14:09
*General Assessment Last Done: 09/16/24 14:09
*Neglect/Abuse Screening Last Done: 09/16/24 14:49
*ED- Fall Risk Assessment Last Done: 09/16/24 14:49
*ED COVID-19 Vaccine History Last Done: 09/16/24 14:49
*Nursing Disposition Last Done: 09/16/24 17:00
ED-Psychological Assessment Last Done: 09/16/24 14:53
Discharge Date and Time
Discharge Date/Time: 09/16/24 17:57
Print Language: SOU[place]
[2024-09-16 16:58] VITALS: BP 153/129
== END 2024-09-16 17:57 | disposition home or self-care (01) ==
LOC: EMR 14:05
PROVIDERS: EMERGENCY PHYSICIAN Emergency Medicine; FAMILY PHYSICIAN Physician Assistant
DX: F41.9 Anxiety disorder, unspecified (principal); R26.89 Other abnormalities of gait and mobility; R29.6 Repeated falls; I11.0 Hypertensive heart disease with heart failure; I50.9 Heart failure, unspecified; E78.00 Pure hypercholesterolemia, unspecified; I25.10 Atherosclerotic heart disease of native coronary artery without angina pectoris; Z86.73 Personal history of transient ischemic attack (TIA), and cerebral infarction without residual deficits; Z87.891 Personal history of nicotine dependence
CPT/HCPCS: 99282

== ENCOUNTER → 2024-09-19 06:46 | Outpatient (REF) | payer MEDICARE, SELFPAY | LOC: PAVMRI 06:46 | PROVIDERS: ATTENDING PHYSICIAN Nurse Practitioner Adult Health; FAMILY PHYSICIAN Physician Assistant | DX: I63.9 Cerebral infarction, unspecified (principal); I63.02 Cerebral infarction due to thrombosis of basilar artery | CPT/HCPCS: 70544; 70551 ==

== ENCOUNTER → 2024-09-25 13:42 | Outpatient (REF) | payer MEDICARE, SELFPAY ==
[2024-09-25 14:53] LABS: VerifyNow Aspirin 569 ARU
== END ==
LOC: REG 13:42
PROVIDERS: ATTENDING PHYSICIAN Nurse Practitioner Adult Health
DX: I63.9 Cerebral infarction, unspecified (principal)
CPT/HCPCS: 36415; 85576

== ENCOUNTER 2024-10-03 05:37 | Emergency (ER) | payer MEDICARE, SELFPAY ==
[2024-10-03 05:41] VITALS: BP 136/80; BMI 31.7
--- NOTE | 2024-10-03 06:24 | ED.GENMED ---
History of Present Illness
General
Chief Complaint: Weakness
Time Seen by Provider: 10/03/24 06:02
History of Present Illness
History of Present Illness:
The patient is a 79-year-old male who presents to the emergency department with complaints of lightheadedness and nausea that began early this morning. The patient reports that upon getting out of bed and walking to the kitchen, he experienced
lightheadedness and felt the need to lie down. He went back to sleep and awoke again around 4:00 a.m., at which point he decided to seek medical attention due to ongoing nausea and a preference for not managing his symptoms alone. Currently all
symptoms have resolved but he feels unsafe going back home.
The patient reports difficulty sleeping, exacerbated by anxiety and medication side effects. He acknowledges prior fall risks, but reports increased awareness and safety practices at home, especially when using stairs. The patient is scheduled for
an MRI at 2:00 p.m. and another mental health appointment at 1:00 p.m. today. He mentions a history of mental confusion and mild cognitive difficulties, attributing them to his ongoing medical conditions.
The patient has been drinking wine and is unsure if his fluid intake has contributed to his symptoms but does report occasional dehydration. He drinks lemonade and does not drink much water. He recently stopped physical therapy about a month ago and
acknowledges potential benefits from additional therapy at home.
Past History
Past History
ED Past Medical History: CAD, Cancer (Prostate), CHF, GERD, HTN, Hypercholesterolemia, [place], Psychiatric and Other (angioedema, diverticulitis)
ED Past Surgical History: Cardiac
Patient has exhibited threatening behavior?: No
Social History
Tobacco: Former smoker
Alcohol: Daily (2 glasses of wine per day)
Drug: None
Personal: Single
Living: alone
Employment: Employed
Family History
Family History: CAD
Phy Exam
Physical Exam
Physical Exam:
GENERAL: in no acute distress
HEENT: normocephalic, extraocular movements intact, dry oral mucosa
NECK: normal inspection
RESPIRATORY: no respiratory distress, clear to auscultation bilaterally
CARDIOVASCULAR: regular rate and rhythm
ABDOMEN/: soft, non-distended, non-tender to palpation, no rebound or guarding
EXTREMITIES: non-tender, no edema/swelling
NEUROLOGIC: awake and alert, moves all extremities
SKIN: warm
Course
Orders/Labs/Results
Orders:
Orders
10/03/24 05:58
Electrocardiogram (*1) Urgent
Reason for Study: Other
Other Reason for Exam: weakness
Cardiology Consult: Unknown
EKG- Treatment ONCE
10/03/24 06:24
Case Management Consult ONCE
Case Management Consult: Discharge Planning
Pt Eval And Treat Urgent
Activity Level: Ambulate
10/03/24 06:31
Complete Blood Count/With Diff Urgent
Comprehensive Metabolic Panel Urgent
10/03/24 09:41
Urinalysis Reflex To Culture Urgent
Date Specimen was Collected: 10/03/24
Time Specimen was Collected: 09:39
Abnormal Lab Results
10/03/24 10/03/24
06:31 09:41
RBC 4.59 L 10^6/uL
(4.70-6.10)
RDW 14.7 H %
(11.5-14.5)
MPV 10.8 H fL
(7.4-10.4)
Abs Immat Gran (auto) 0.1 H 10^3/uL
(0-0.05)
Absolute Monos (auto) 1.3 H 10^3/uL
(0.1-0.6)
Immature Gran % 0.8 H %
(0-0.5)
Monocytes % 19.3 H %
(1.7-9.3)
Chloride 109 H mmol/L
(98-107)
Creatinine 0.6 L mg/dL
(0.7-1.3)
Glucose 163 H mg/dl
(70-99)
Urine Ketones 2+ A
(Negative)
Urine Glucose 4+ A
(Negative)
10/03/24 06:31
10/03/24 06:31
Vital Signs
Initial and Last Documented VS:
Initial Vital Signs
Temp Pulse Resp BP Pulse Ox
98.4 F 77 20 136/80 98
10/03/24 05:41 10/03/24 05:41 10/03/24 05:41 10/03/24 05:41 10/03/24 05:41
Last Documented Vital Signs
Temp Pulse Resp BP Pulse Ox
98.4 F 73 11 141/77 98
10/03/24 05:41 10/03/24 10:07 10/03/24 10:07 10/03/24 10:07 10/03/24 08:30
MDM/Problems Addressed
Differential Diagnosis Includes:
Patient is a 79-year-old man presenting to the emergency department with generalized weakness and episode of lightheadedness dizziness nausea that has since resolved. Vitals unremarkable and exam that showed right lower mucosa but no neurodeficits.
Differential consists of dehydration versus UTI versus metabolic derangement. Will check blood work and urine sample. Will give p.o. fluids and reassess symptoms. Will touch base with physical therapy and case management
*Critical Care Note
Total Time (30-74mins, 75-104mins- exclusive of procedures): Not Applicable
Update Note
Update Note:
Blood work and urine reassuring. Physical therapy evaluated patient and he was able to complete all tasks with them. Patient does not need any inpatient or outpatient PT. Of note he did state to physical therapy that he would like to go to rehab
as it would be a nice vacation. I did have case management talk to patient as well. They do note significant financial and social struggles. They did get him set up with resources for food and utility bills. Patient still interested in
admission. I did discuss with him that there is no reason for him to be admitted as he is ambulatory and all symptoms that he had earlier have resolved. I did emphasize the importance of following up with his primary care doctor and utilizing the
resources provided to him
ED Attending Note
-
Portions of this chart may have been created with voice recognition software.� Occasional wrong word or��sound alike� substitutions may have occurred due to the inherent limitations of voice recognition software.
Discharge Plan
Departure
Patient Disposition: Home (Routine Discharge)
Date of Disposition: 10/03/24
Time of Disposition: 10:28
Patient with high blood pressure during this ER visit?: No
Discharge Problem:
Weakness
Instructions: Generalized Weakness (DC)
Prescriptions:
No Action
terazosin 5 MG capsule
5 mg PO HS
aspirin 81 MG tablet,delayed release (DR/EC)
81 mg PO DAILY
rosuvastatin [Crestor] 40 MG tablet
40 mg PO HS
bupropion HCl 300 MG tablet extended release 24 hr
300 mg PO DAILY
ropinirole 1 MG tablet
3 mg PO HS
pantoprazole 40 MG tablet,delayed release (DR/EC)
40 mg PO DAILY
guaifenesin [Tussin] 100 mg/5 mL Liquid
200 mg PO BID PRN (Reason: cough)
azelastine 137 mcg (0.1 %) Aerosol,[place]
1 spray INTRANASAL BID
Patient Comments:
04/14/2023, patient states that sometimes they take this medication more than two times a day.
psyllium husk 3.4 gram/5.4 gram Powder
2 tsp PO TIDPRN PRN (Reason: constipation)
furosemide [Lasix] 20 MG tablet
40 mg PO DAILY
tramadol 50 mg Tablet
50 mg PO Q6HPRN PRN (Reason: mod sev pain) Qty: 15 0RF
spironolactone 25 mg Tablet
25 mg PO DAILY Qty: 30 2RF
tolterodine 2 mg Capsule,Extended Release 24hr
2 mg PO DAILY
trazodone 50 mg Tablet
50 mg PO HSPRN PRN (Reason: sleep)
cetirizine [Zyrtec] 10 mg Tablet
10 mg PO DAILYPRN PRN (Reason: allergies)
solifenacin 10 mg Tablet
10 mg PO DAILY
Jardiance 25 mg Tablet
12.5 mg PO DAILY
carvedilol 3.125 mg Tablet
3.125 mg PO BID Qty: 0 0RF
benzonatate 100 mg Capsule
100 mg PO TIDPRN PRN (Reason: Cough) Qty: 0 0RF
amoxicillin-pot clavulanate 875-125 mg Tablet
1 tab PO Q12 3 Days Qty: 6 0RF
Chloraseptic Sore Throat 6-10 mg Lozenge
1 caitlyn PO Q4HPRN PRN (Reason: sore throat) Qty: 0 0RF
alprazolam 0.25 MG tablet
0.25 mg PO Q8HPRN PRN (Reason: anxiety) Qty: 5 0RF
Referrals:
UNKNOWN - PT DOES,NOT KNOW [Family Provider]
Activity Restrictions/Additional Instructions:
You were seen in the Emergency Department today. While you were here we performed blood work, which was reassuring. Please make sure you follow-up with your primary care doctor and call the resources that case management gave to you.
We would like for you to follow up with your primary care physician for further evaluation. If you experience fever, worsening of your symptoms, or develop any other new or concerning symptoms, please return to the Emergency Department immediately.
Please see the attached sheet for additional information.
Interventions
Interventions:
*Risk Screen - Suicide Last Done: 10/03/24 05:41
*General Assessment Last Done: 10/03/24 05:41
*Neglect/Abuse Screening Last Done: 10/03/24 05:41
*ED- Fall Risk Assessment Last Done: 10/03/24 05:41
*ED COVID-19 Vaccine History Last Done: 10/03/24 05:41
ED- Cardiac Assessment Last Done: 10/03/24 06:14
ED- Neurological Assessment Last Done: 10/03/24 06:14
ED- Pulmonary Assessment Last Done: 10/03/24 06:14
Discharge Date and Time
Print Language: [place]
[2024-10-03 07:00] VITALS: BP 104/84
[2024-10-03 07:10] LABS: % Basophils 0.2 % (0-2); % Immature Granulocytes 0.8 % (0-0.5); % Lymphocytes 28.3 % (20.5-51.1); % Monocytes 19.3 % (1.7-9.3); % Neutrophils 51.4 % (42.2-75.2); Absolute Immature Granulocytes 0.1 10^3/uL (0-0.05); Absolute Lymphocytes 1.8 10^3/uL (1.2-3.4); Absolute Monocytes 1.3 10^3/uL (0.1-0.6); Absolute Neutrophils 3.3 10^3/uL (1.4-6.5); Hematocrit 39.6 % (39.0-52.0); Hemoglobin 14.1 g/dL (13.0-18.0); Mean Corp Hgb Conc. 35.6 g/dL (33.0-37.0); Mean Corpuscular Hgb 30.7 pg (27.0-31.0); Mean Corpuscular Volume 86.3 fL (80.0-94.0); Mean Platelet Volume 10.8 fL (7.4-10.4); Nucleated Red Blood Cells % 0 % (-); Platelet Count 131 10^3/uL (130-400); Red Blood Cell Count 4.59 10^6/uL (4.70-6.10); Red Cell Dist. Width 14.7 % (11.5-14.5); White Blood Cell Count 6.5 10^3/uL (4.8-10.8)
[2024-10-03 07:13] LABS: ALT (SGPT) 22 U/L (0-50); AST (SGOT) 17 U/L (17-59); Alkaline Phosphatase 48 U/L (38-126); Blood Urea Nitrogen 18 mg/dl (9-20); Calcium 9.1 mg/dl (8.4-10.2); Carbon Dioxide 23 mmol/L (22-30); Chloride 109 mmol/L (98-107); Estimated Creatinine Clearance 91 ml/min; Glucose 163 mg/dl (70-99); Potassium 3.8 mmol/L (3.5-5.1); Sodium 139 mmol/L (135-145); Total Bilirubin 1.1 mg/dl (0.2-1.3); Total Protein 6.4 g/dl (6.3-8.2); eGFR > 60.00
[2024-10-03 07:58] VITALS: BP 111/97
[2024-10-03 08:27] VITALS: BP 111/97; PULSE 79; O2SAT 97
[2024-10-03 09:51] LABS: Urine Albumin Negative (Neg - Trace); Urine Bilirubin Negative (Negative); Urine Character Clear (Clear); Urine Color Yellow; Urine Glucose 4+ (Negative); Urine Ketone 2+ (Negative); Urine Leukocyte Negative (Negative); Urine Nitrite Negative (Negative); Urine Occult Blood Negative (Negative); Urine Specific Gravity 1.015 (<1.030); Urine Urobilinogen Negative (Neg - 1+)
--- NOTE | 2024-10-03 09:56 | CM ---
Addendum entered by Mandi Montesinos 10/03/24 11:19:
Lyft arranged, pt left ED
Original Note:
CM consult received, chart reviewed and met with pt bedside in ED.
Pt lives alone, no family or friends for support. Estranged from his daughter for past 10 years, did not want to provide any other emergency contact.
Pt employed at [employer], currently on unpaid medical leave, notes many financial insecurities with rent and food.
He uses walker for ambulation, is independent and still drives. Was seen and cleared by PT, no skilled need.
Community resources provided including [employer], [employer] and housing and meal resources.
CM to arrange for a Lyft once ready for discharge. Pt aware no skilled need but requesting VN be set up, discussed with VN Liaison, not able to provide services due to lack of skillable need. Reviewed with Physician, will not provide OP therapy
order as there is not a skilled need.
[2024-10-03 10:07] VITALS: BP 141/77
== END 2024-10-03 11:14 | disposition home or self-care (01) ==
LOC: EMR 05:37
PROVIDERS: Student in an Organized Health Care Education/Training Program; EMERGENCY PHYSICIAN Student in an Organized Health Care Education/Training Program
DX: R53.1 Weakness (principal); E78.00 Pure hypercholesterolemia, unspecified; I11.0 Hypertensive heart disease with heart failure; I50.9 Heart failure, unspecified; I25.10 Atherosclerotic heart disease of native coronary artery without angina pectoris; Z85.46 Personal history of malignant neoplasm of prostate; Z87.891 Personal history of nicotine dependence
CPT/HCPCS: 99284; 80053; 81003; 85025; 93005

== ENCOUNTER → 2025-01-07 10:42 | Outpatient (REF) | payer MEDICARE, SELFPAY | LOC: REG 10:42 | PROVIDERS: ATTENDING PHYSICIAN Physician Assistant | DX: R06.02 Shortness of breath (principal); R09.89 Other specified symptoms and signs involving the circulatory and respiratory systems | CPT/HCPCS: 71046 ==

== ENCOUNTER → 2025-03-15 10:02 | Outpatient (REF) | payer MEDICARE, SELFPAY ==
[2025-03-15 12:29] LABS: PSA, Total - Diagnostic 0.18 ng/ml (0.0-4.0)
== END ==
LOC: REG 10:02
PROVIDERS: ATTENDING PHYSICIAN Specialist; FAMILY PHYSICIAN Physician Assistant
DX: C61 Malignant neoplasm of prostate (principal)
CPT/HCPCS: 36415; 84153